=== PATIENT | male | born 1935 | race African-American/Black ===

== ENCOUNTER 2021-12-13 12:46 | Inpatient (IN) | payer MEDICARE ==
[~2021-12-13] VITALS: Ht 177 cm; Wt 70.8 kg
[2021-12-13] VITALS (9 sets, daily range): BP systolic 98–127; BP diastolic 36–75
[2021-12-13] MEDS ORDERED: NS IV 1000 ML 1,000 ML IV STA (13:05)
--- NOTE | 2021-12-13 13:11 | ED General ---
General Chief Complaint: General Problems/Pain Stated Complaint: GEN WEAKNESS Source of Information: Patient, EMS History of Present Illness Date Seen by Provider: December 13, 2021 Time Seen by Provider: 12:46 Initial Comments 86-year-old male presenting with EMS due to complaints of feeling dizzy with standing, generally weak, short of breath. He had an episode of vomiting x1 a few days ago. He denies any diarrhea or constipation but states he has had some dark tarry stools at times. He denies any pain or burning with urination. He used to be a heavy drinker but states he has not drank any alcohol for a few months. He smokes cigarettes. He was told at the beginning of the year that he was anemic and needs to see a specialist in [place]. He has not made that appointment for follow-up. He reports that he has an appointment this afternoon to see Dr. Tovar, but rather than keep his appointment for these chronic conditions he called 911 and had them bring him here to the ED. Timing/Duration: Other (ongoing for months but worse in last 2 weeks) Severity: Moderate Modifying Factors: worse with Movement Associated Systoms: No Chest Pain; Cough; No Diaphoresis, No Fever/Chills, No Headaches; Loss of Appetite, Malaise, Nausea/Vomiting (x 1 few days ago); No Rash, No Seizure; Shortness of Air; No Syncope; Weakness (general) Allergies and Home Medications Allergies Coded Allergies: No Known Drug Allergies (Unverified , 12/13/21) Patient Home Medication List Home Medication List Reviewed: Yes Review of Systems Review of Systems Constitutional: No chills, No diaphoresis; dizziness; No fever; malaise, weakness EENTM: no symptoms reported Respiratory: see HPI Cardiovascular: No chest pain; edema (trace in bilateral LE); No palpitations Gastrointestinal: abdominal pain (RUQ); No constipation, No diarrhea; nausea, vomiting (x1 a few days ago) Genitourinary: no symptoms reported Musculoskeletal: no symptoms reported Skin: No rash Psychiatric/Neurological: See HPI; Denies Headache Hematologic/Lymphatic: Denies Easy Bleeding, Denies Easy Bruising Immunological/Allergic: no symptoms reported Past Akaruhy-Ambzco-Tmdhcu Hx Patient Social History Tobacco Use?: Yes Tobacco type used: Cigarettes Smoking Status: Current Everyday Smoker Use of E-Cig and/or Vaping dev: No Substance use?: No Alcohol Use?: No Pt feels they are or have been: Unable to obtain Past Medical History Surgery/Hospitalization HX: Hypertension, hypercholesterolemia, Hx of alcoholism-quit earlier this year Physical Exam Vital Signs Vital Signs - First Documented 12/13/21 13:03 Temp 36.8 Pulse 102 Resp 18 B/P (MAP) 115/53 (73) Pulse Ox 100 O2 Delivery Room Air Capillary Refill : Height, Weight, BMI Height: '" Weight: lbs. oz. kg; BMI Method: General Appearance: No Apparent Distress, WD/WN HEENT: PERRL/EOMI, Pharynx Normal Neck: Full Range of Motion, Normal Inspection, Non Tender, Supple Respiratory: Chest Non Tender, Lungs Clear, Normal Breath Sounds, No Accessory Muscle Use, No Respiratory Distress Cardiovascular: Normal Peripheral Pulses, Extra Beats, Tachycardia Gastrointestinal: Normal Bowel Sounds, No Pulsatile Mass, Soft; No Distended, No Guarding, No Rebound; Tenderness (RUQ tenderness along liver edge, palpable liver edge) Rectal: Normal Exam, Normal Rectal Tone, Heme Negative Stool Back: No CVA Tenderness, No Vertebral Tenderness Extremity: Normal Capillary Refill, Normal Inspection, No Calf Tenderness, Pedal Edema (trace edema to BLE) Neurologic/Psychiatric: Alert, Oriented x3, No Motor/Sensory Deficits, Normal Mood/Affect, flare stitcher II-XII Norm as Tested Skin: Warm/Dry Progress/Results/Core Measures Suspected Sepsis SIRS Temperature: Pulse: Respiratory Rate: Laboratory Tests 12/13/21 12:57: White Blood Count 3.7L Blood Pressure / Mean: Laboratory Tests 12/13/21 12:57: Creatinine 1.29, INR Comment 1.3, Platelet Count 121L, Total Bilirubin 3.8H Results/Orders Lab Results Laboratory Tests Test 12/13/21 12:57 12/13/21 13:19 12/13/21 14:24 Range/Units White Blood Count 3.7 L 4.3-11.0 10^3/uL Red Blood Count 0.83 L 4.30-5.52 10^6/uL Hemoglobin 2.9 *L 13.3-17.7 g/dL Hematocrit 9 *L 40-54 % Mean Corpuscular Volume 113 H 80-99 fL Mean Corpuscular Hemoglobin 35 H 25-34 pg Mean Corpuscular Hemoglobin Concent 31 L 32-36 g/dL Red Cell Distribution Width 25.3 H 10.0-14.5 % Platelet Count 121 L 130-400 10^3/uL Mean Platelet Volume 12.4 H 9.0-12.2 fL Immature Granulocyte % (Auto) 9 % Neutrophils (%) (Auto) 32 L 42-75 % Lymphocytes (%) (Auto) 36 12-44 % Monocytes (%) (Auto) 22 H 0-12 % Eosinophils (%) (Auto) 0 0-10 % Basophils (%) (Auto) 1 0-10 % Neutrophils # (Auto) 1.2 L 1.8-7.8 10^3/uL Lymphocytes # (Auto) 1.3 1.0-4.0 10^3/uL Monocytes # (Auto) 0.8 0.0-1.0 10^3/uL Eosinophils # (Auto) 0.0 0.0-0.3 10^3/uL Basophils # (Auto) 0.0 0.0-0.1 10^3/uL Immature Granulocyte # (Auto) 0.3 H 0.0-0.1 10^3/uL Prothrombin Time 16.9 H 12.2-14.7 SEC INR Comment 1.3 0.8-1.4 Activated Partial Thromboplast Time 23 L 24-35 SEC Sodium Level 132 L 135-145 MMOL/L Potassium Level 3.0 L 3.6-5.0 MMOL/L Chloride Level 95 L 98-107 MMOL/L Carbon Dioxide Level 16 L 21-32 MMOL/L Anion Gap 21 H 5-14 MMOL/L Blood Urea Nitrogen 32 H 7-18 MG/DL Creatinine 1.29 0.60-1.30 MG/DL Estimat Glomerular Filtration Rate 55 BUN/Creatinine Ratio 25 Glucose Level 146 H 70-105 MG/DL Calcium Level 8.9 8.5-10.1 MG/DL Corrected Calcium 9.2 8.5-10.1 MG/DL Magnesium Level 2.3 1.6-2.4 MG/DL Total Bilirubin 3.8 H 0.1-1.0 MG/DL Aspartate Amino Transf (AST/SGOT) 16 5-34 U/L Alanine Aminotransferase (ALT/SGPT) 13 0-55 U/L Alkaline Phosphatase 68 40-136 U/L Myoglobin 66.0 10.0-92.0 NG/ML Troponin I < 0.30 <0.30 NG/ML Pro-B-Type Natriuretic Peptide 3098.0 H <75.0 PG/ML Total Protein 7.3 6.4-8.2 GM/DL Albumin 3.6 3.2-4.5 GM/DL Lipase 44 8-78 U/L Serum Alcohol < 10 <10 MG/DL Influenza Type A Antigen NEGATIVE NEGATIVE Influenza Type B Antigen NEGATIVE NEGATIVE My Orders Orders - MANUEL ASTORGA MD Cbc With Automated Diff (12/13/21 13:02) Magnesium (12/13/21 13:02) Chest 1 View Ap/Pa Only (12/13/21 13:02) Ekg Tracing (12/13/21 13:02) Comprehensive Metabolic Panel (12/13/21 13:02) Myoglobin Serum (12/13/21 13:02) Protime With Inr (12/13/21 13:02) Partial Thromboplastin Time (12/13/21 13:02) O2 (12/13/21 13:02) Monitor-Rhythm Ecg Trace Only (12/13/21 13:02) Ed Iv/Invasive Line Start (12/13/21 13:02) Lipase (12/13/21 13:02) Troponin I Fs (12/13/21 13:02) Probnp Fs (12/13/21 13:02) Fecal Occult Bedside (12/13/21 13:02) Covid 19 Inhouse Test (12/13/21 13:02) Influenza A & B Antigens (12/13/21 13:02) Ua Culture If Indicated (12/13/21 13:02) Alcohol (12/13/21 13:02) Ns Iv 1000 Ml (Sodium Chloride 0.9%) (12/13/21 13:05) Manual Differential (12/13/21 12:57) Ed Admission (Communication) (12/13/21 14:30) Folic Acid (12/13/21 14:31) Vitamin B 12 (12/13/21 14:31) Pantoprazole Injection (Protonix Injecti (12/13/21 14:31) Vital Signs/I&O 12/13/21 12/13/21 13:03 14:54 Temp 36.8 Pulse 102 89 Resp 18 16 B/P (MAP) 115/53 (73) 135/74 Pulse Ox 100 99 O2 Delivery Room Air Capillary Refill : Progress Note #1: Progress Note Check labs as well as electrocardiogram, chest x-ray, urinalysis. Give normal saline 1 L IV fluid bolus for hydration. Chest x-ray to evaluate for possible pneumonia or heart failure or lung mass. COVID and influenza swabs to evaluate for possible viral infection making him feel more weak. Progress Note #2: Progress Note Electrocardiogram shows sinus rhythm without ST elevation. His chest x-ray showed some increased pulmonary edema for possible congestive heart failure. There is no infiltrate or pleural effusion. Labs came back showing hemoglobin was very low at 2.9. His white blood cell count was 3.7. Platelets were also low at 121. His chemistry panel showed elevated total bilirubin 3.8 with mild decrease in renal function with a GFR of 55. His creatinine is 1.29. Will check with Dr. Whitfield the on-call physician for [facility] about admission since patient's hemoglobin is low enough that he definitely would need transfused to try and help with his blood count and this should help with his overall body function. Progress Note #3: Progress Note [address] Whitfield for [facility] and she accepted the patient for admission. Will place him in a cardiac stepdown unit and she will place queued orders. She did request to consult Dr. Morris with cardiology and Dr. Marte with surgery so that they were aware of the patient. We will also add on B12 and folate levels with the blood work from here in the ED. ECG Initial ECG Impression Date: December 13, 2021 Initial ECG Impression Time: 13:05 Initial ECG Rate: 98 Initial ECG Rhythm: Normal Sinus Initial ECG Comparisson: No Previous ECG Available Comment Normal sinus rhythm with a heart rate 98 bpm. IA interval [address] elevation. QT interval 241 ms with a QTc interval 297 ms. There is no prior tracing available for comparison. Diagnostic Imaging Diagonstic Imaging: Xray Plain Films/CT/US/NM/MRI: chest Comments [facility] [place], [place] NAME: LUKE LOZANO [facility] REC#: [id number] PT STATUS: REG ER : 1935 PHYSICIAN: MANUEL ASTORGA MD ADMIT DATE: 12/13/21/ER FS Draft Date of Exam:12/13/21 CHEST 1 VIEW AP/PA ONLY INDICATION: Dizziness and dyspnea. TECHNIQUE/COMPARISON: A portable AP upright view of the chest was obtained. There is no previous study for comparison. FINDINGS: There is mild cardiomegaly and pulmonary venous congestion. Increased density is seen in the perihilar regions of both lungs without lobar consolidation, pneumothorax, or pleural fluid. IMPRESSION: Findings suggest mild congestive heart failure and central pulmonary edema. Dictated on workstation # [id number] Dict: 12/13/21 1349 Trans: 12/13/21 1352 [id number] Interpreted by: BK PAGE MD Electronically signed by: Reviewed: Reviewed by Me Departure Communication (Admissions) Time/Spoke to Admitting Phy: 14:21 d/w Dr. Whitfield and she accepted pt for admit. Time/Spoke to Consulting Phy: 14:[address] Morris for cardiology to update him about the patient being admitted to [facility] and having a consult regarding echocardiogram and heart failure secondary to his anemia [address] Marte for general surgery to update him about the patient being admitted to [facility] and having a consult for patient's severe anemia. Likely will need endoscopy to further evaluate possible source of bleeding. Impression Primary Impression: Anemia Qualified Codes: D64.9 - Anemia, unspecified Additional Impressions: Generalized weakness Pancytopenia Congestive heart failure of unknown etiology Disposition: 30 STILL A PATIENT Condition: Stable Admissions Decision to Admit Reason: Admit from ER (General) Decision to Admit/Date: December 13, 2021 Time/Decision to Admit Time: 14:21 MANUEL ASTORGA MD December 13, 2021 13:11
[2021-12-13 13:30] LABS: INR 1.3 (0.8-1.4); PROTHROMBIN TIME PATIENT 16.9 SEC (12.2-14.7)
[2021-12-13 13:43] LABS: BASOPHILS % (AUTO) 1 % (0-10); EOSINOPHILS % (AUTO) 0 % (0-10); LYMPHOCYTES # (AUTO) 1.3 10^3/uL (1.0-4.0); LYMPHOCYTES % (AUTO) 36 % (12-44); MEAN CORPUSCULAR HEMOGLOBIN 35 pg (25-34); MEAN CORPUSCULAR HGB CONC 31 g/dL (32-36); MEAN CORPUSCULAR VOLUME 113 fL (80-99); MEAN PLATELET VOLUME 12.4 fL (9.0-12.2); MONOCYTES # (AUTO) 0.8 10^3/uL (0.0-1.0); MONOCYTES % (AUTO) 22 % (0-12); NEUTROPHILS # (AUTO) 1.2 10^3/uL (1.8-7.8); NEUTROPHILS % (AUTO) 32 % (42-75); PLATELET COUNT 121 10^3/uL (130-400); WHITE BLOOD COUNT 3.7 10^3/uL (4.3-11.0)
--- NOTE | 2021-12-13 13:52 | Diagnostic Imaging Report ---
INDICATION: Dizziness and dyspnea. TECHNIQUE/COMPARISON: A portable AP upright view of the chest was obtained. There is no previous study for comparison. FINDINGS: There is mild cardiomegaly and pulmonary venous congestion. Increased density is seen in the perihilar regions of both lungs without lobar consolidation, pneumothorax, or pleural fluid. IMPRESSION: Findings suggest mild congestive heart failure and central pulmonary edema. Dictated by: Dictated on workstation # [id number]
[2021-12-13 13:53] LABS: HEMATOCRIT 9 % (40-54); HEMOGLOBIN 2.9 g/dL (13.3-17.7)
[2021-12-13 13:56] LABS: BILIRUBIN,TOTAL 3.8 MG/DL (0.1-1.0); BUN/CREATININE RATIO 25; CALCIUM 8.9 MG/DL (8.5-10.1); CARBON DIOXIDE 16 MMOL/L (21-32); CHLORIDE 95 MMOL/L (98-107); CREATININE SERUM 1.29 MG/DL (0.60-1.30); GFR ESTIMATED 55; GLUCOSE 146 MG/DL (70-105); MAGNESIUM 2.3 MG/DL (1.6-2.4); SODIUM 132 MMOL/L (135-145)
[2021-12-13 13:57] LABS: ALANINE AMINOTRANSFERASE 13 U/L (0-55); ALBUMIN 3.6 GM/DL (3.2-4.5); ALKALINE PHOSPHATASE 68 U/L (40-136); LIPASE 44 U/L (8-78); TOTAL PROTEIN 7.3 GM/DL (6.4-8.2)
[2021-12-13] MEDS ORDERED: PANTOPRAZOLE 40 MG (PROTONIX) VIAL IV STA (14:31)
[2021-12-13 15:00] LABS: BILIRUBIN,URINE NEGATIVE (NEGATIVE); CLARITY,URINE CLEAR; COLOR,URINE YELLOW; GLUCOSE, URINE (UA) NEGATIVE (NEGATIVE); KETONES,URINE NEGATIVE (NEGATIVE); LEUKOCYTE ESTERASE ,URINE NEGATIVE (NEGATIVE); NITRITE,URINE NEGATIVE (NEGATIVE); PROTEIN,URINE NEGATIVE (NEGATIVE)
[2021-12-13 15:13] LABS: BACTERIA,URINE NEGATIVE /HPF; HYALINE CASTS, URINE 0-2 /LPF; SQUAMOUS EPITHELIAL CELL,UR RARE /HPF; WBC,URINE RARE /HPF
[2021-12-13 15:17] LABS: BAND NEUTROPHILS 2 %; LYMPHOCYTES % (MANUAL) 44 %; METAMYELOCYTES % 1 %; MONOCYTES % (MANUAL) 6 %; MYELOCYTES % 7 %; NEUTROPHILS % (MANUAL) 30 %
[2021-12-13 15:18] LABS: ATYPICAL LYMPHOCYTES 4 %; BLAST CELLS 5 %; NUCLEATED RED BLOOD CELLS 14; PLATELET ESTIMATE DECREASED; RBC MORPH ABNORMAL; REACTIVE LYMPHOCYTES 1 %
[2021-12-13 15:19] LABS: ANISOCYTOSIS MARKED; ELLIPT/OVALOCYTES SLIGHT; POIKILOCYTOSIS MODERATE; POLYCHROMASIA SLIGHT; TEAR DROP CELLS SLIGHT
[2021-12-13] MEDS ORDERED: CYANOCOBALAMIN INJ 1000 MCG/ML IM ONE (16:30)
[2021-12-13] MEDS ORDERED: ANTACID SUSP 30 ML UDC (MYLANTA) PO PRN ×2 (16:30)
[2021-12-13] MEDS ORDERED: diphenhydrAMINE 25 MG TAB (BENADRYL) PO PRN (16:30)
[2021-12-13] MEDS ORDERED: ACETAMINOPHEN 325 MG TABLET PO PRN (16:30)
[2021-12-13] MEDS ORDERED: morphine INJ 4 MG/ML 1 ML (VIAL/SYRINGE) IV PRN (16:30)
[2021-12-13] MEDS ORDERED: SENNA W/DOCUSATE (SENOKOT S) TABLET PO PRN (16:30)
[2021-12-13] MEDS ORDERED: NS IV 500 ML 500 ML IV SCH ×2 (16:30)
[2021-12-13] MEDS ORDERED: ONDANSETRON 4 MG (ZOFRAN) ORAL DISSOLVE TAB PO PRN (16:30)
[2021-12-13] MEDS ORDERED: polyethylene glycoL POWDER 17 GM (MIRALAX) PACK PO PRN (16:30)
[2021-12-13] MEDS ORDERED: MELATONIN 3 MG TABLET PO PRN (16:30)
[2021-12-13] MEDS ORDERED: LORazepam INJ 2 MG/ML (ATIVAN) VIAL IV PRN (16:30)
[2021-12-13] MEDS ORDERED: diphenhydrAMINE 50 MG/ML INJ (BENADRYL) IVP PRN (16:30)
[2021-12-13] MEDS ORDERED: D5 1/2 NS 1000 ML IV SOLUTION 1,000 ML IV PRN (16:30)
[2021-12-13] MEDS ORDERED: ONDANSETRON 4 MG (ZOFRAN) ORAL DISSOLVE TAB SL PRN (16:30)
[2021-12-13] MEDS ORDERED: LORazepam INJ 2 MG/ML (ATIVAN) VIAL IM/IV PRN (16:30)
[2021-12-13] MEDS ORDERED: ONDANSETRON 4 MG/2 ML (SDV) Z0FRAN IV PRN (16:30)
[2021-12-13] MEDS ORDERED: 1/2 NS IV SOLUTION 1,000 ML IV PRN (16:30)
[2021-12-13] MEDS ORDERED: BISACODYL 10 MG SUPP (DULCOLAX) PR PRN (16:30)
[2021-12-13] MEDS ORDERED: RT-ALBUTEROL/IPRATROPIUM 3 ML (DUONEB) VIAL INH PRN (17:00)
[2021-12-13] MEDS: ONDANSETRON 4 MG/2 ML (SDV) Z0FRAN IV PRN (18:04)
--- NOTE | 2021-12-13 20:54 | Consultation - Surgery ---
History of Present Illness History of Present Illness Patient Consulted On(keri/time) 12/13/21 20:49 Time Seen by Provider: 17:02 History of Present Illness Surgery asked to consult regarding profound anemia. HPI per ED: 86-year-old male presenting with EMS due to complaints of feeling dizzy with standing, generally weak, short of breath. He had an episode of vomiting x1 a few days ago. He denies any diarrhea or constipation but states he has had some dark tarry stools at times. He denies any pain or burning with urination. He used to be a heavy drinker but states he has not drank any alcohol for a few months. He smokes cigarettes. He was told at the beginning of the year that he was anemic and needs to see a specialist in [place]. He has not made that appointment for follow-up. He reports that he has an appointment this afternoon to see Dr. Tovar, but rather than keep his appointment for these chronic conditions he called 911 and had them bring him here to the ED. Timing/Duration: Other (ongoing for months but worse in last 2 weeks) Severity: Moderate Modifying Factors: worse with Movement Associated Systoms: No Chest Pain; Cough; No Diaphoresis, No Fever/Chills, No Headaches; Loss of Appetite, Malaise, Nausea/Vomiting (x 1 few days ago); No Rash, No Seizure; Shortness of Air; No Syncope; Weakness (general) When I spoke to pt he stated he had never had an EGD or colonoscopy. He denied abdominal pain and hematochezia. He did report some "darker" stools, but stated they occurred after he took some stool softeners. He states he has felt very weak for past few weaks; "like I had no motivation and couldn't do anything". He denied any hematemesis. Allergies and Home Medications Allergies Coded Allergies: No Known Drug Allergies (Unverified , 12/13/21) Patient Home Medication List Home Medication List Reviewed: Yes Past Kvkfjbx-Nmdqww-Ujzapl Hx Patient Social History Smoking Status: Current Everyday Smoker Alcohol Use?: Yes Have you traveled recently?: No Surgeries History of Surgeries: No Respiratory History of Respiratory Disorde: No Cardiovascular History of Cardiac Disorders: No Neurological History of Neurological Disord: No Genitourinary History of Genitourinary Disor: No Gastrointestinal History of Gastrointestinal Di: No Musculoskeletal History of Musculoskeletal Dis: Yes Musculoskeletal Disorders: Arthritis Endocrine History of Endocrine Disorders: No HEENT History of HEENT Disorders: No Hearing Impairment: Hard of Hearing Psychosocial History of Psychiatric Problem: No Integumentary History of Skin or Integumenta: No Family Medical History Significant Family History: Cancer (pt denied any cancer in his parents), Diabetes (said he had some nieces who had DM) Review of Systems-General Constitutional: dizziness, malaise, weakness EENTM: No blurred vision, No mouth pain, No mouth swelling, No epistaxis Respiratory: No dyspnea on exertion, No hemoptysis; short of breath Cardiovascular: No chest pain, No palpitations Gastrointestinal: No abdominal pain; melena (pt stated dark stools but was heme negative); No nausea, No vomiting Genitourinary: No dysuria, No frequency, No hematuria Musculoskeletal: joint pain, joint swelling, muscle stiffness, muscle cramps Skin: No change in color, No change in hair/nails Psychiatric/Neurological: Denies Anxiety, Denies Depressed, Denies Seizure, Denies Tremors Physical Exam-General Problems Physical Exam Vital Signs Vital Signs - First Documented 12/13/21 12/13/21 13:03 16:47 Temp 36.8 Pulse 102 Resp 18 B/P (MAP) 115/53 (73) Pulse Ox 100 O2 Delivery Room Air FiO2 21 Capillary Refill : General Appearance: no apparent distress, thin Eyes: Bilateral Eye PERRL, Bilateral Eye EOMI HEENT: pharynx normal; No scleral icterus (R), No scleral icterus (L); other (poor dentition) Neck: non-tender, supple Respiratory: chest non-tender, lungs clear, normal breath sounds, no respirat ory distress, no accessory muscle use Cardiovascular: no murmur, tachycardia Gastrointestinal: non tender, soft, no pulsatile mass, hepatomegaly; No spleenomegaly Rectal: No heme positive stool (checked by ER doc) Back: no CVA tenderness, no vertebral tenderness Extremities: non-tender, normal inspection, no calf tenderness, pedal edema (but nothing above ankles) Neurologic/Psychiatric: alert, normal mood/affect, oriented x 3 Skin: normal color, warm/dry Lymphatic: no adenopathy (neck, axilla or groin) Data Review Labs Laboratory Tests 12/13/21 12:57: White Blood Count 3.7L, Red Blood Count 0.83L, Hemoglobin 2.9*L, Hematocrit 9*L, Mean Corpuscular Volume 113H, Mean Corpuscular Hemoglobin 35H, Mean Corpuscular Hemoglobin Concent 31L, Red Cell Distribution Width 25.3H, Platelet Count 121L, Mean Platelet Volume 12.4H, Immature Granulocyte % (Auto) 9, Neutrophils (%) (Auto) 32L, Lymphocytes (%) (Auto) 36, Monocytes (%) (Auto) 22H, Eosinophils (%) (Auto) 0, Basophils (%) (Auto) 1, Neutrophils # (Auto) 1.2L, Lymphocytes # (Auto) 1.3, Monocytes # (Auto) 0.8, Eosinophils # (Auto) 0.0, Basophils # (Auto) 0.0, Immature Granulocyte # (Auto) 0.3H, Neutrophils % (Manual) 30, Lymphocytes % (Manual) 44, Monocytes % (Manual) 6, Metamyelocytes % 1, Myelocytes % 7, Band Neutrophils 2, Nucleated Red Blood Cells 14, Atypical Lymphocytes 4, Reactive Lymphocytes 1, Blast Cells 5, Platelet Estimate DECREASED, Polychromasia SLIGHT, Poikilocytosis MODERATE, Anisocytosis MARKED, Tear Drop Cells SLIGHT, Elliptocytes SLIGHT, Blood Morphology Comment ABNORMAL, Prothrombin Time 16.9H, INR Comment 1.3, Activated Partial Thromboplast Time 23L, Sodium Level 132L, Potassium Level 3.0L, Chloride Level 95L, Carbon Dioxide Level 16L, Anion Gap 21H, Blood Urea Nitrogen 32H, Creatinine 1.29, Estimat Glomerular Filtration Rate 55, BUN/Creatinine Ratio 25, Glucose Level 146H, Calcium Level 8.9, Corrected Calcium 9.2, Magnesium Level 2.3, Total Bilirubin 3.8H, Aspartate Amino Transf (AST/SGOT) 16, Alanine Aminotransferase (ALT/SGPT) 13, Alkaline Phosphatase 68, Myoglobin 66.0, Troponin I < 0.30, Pro-B-Type Natriuretic Peptide 3098.0H, Total Protein 7.3, Albumin 3.6, Lipase 44, Serum Alcohol < 10 12/13/21 13:19: Influenza Type A Antigen NEGATIVE, Influenza Type B Antigen NEGATIVE, SARS-CoV-2 RNA (RT-PCR) Not Detected 12/13/21 14:24: Urine Color YELLOW, Urine Clarity CLEAR, Urine pH 6.0, Urine Specific [place] 1.020, Urine Protein NEGATIVE, Urine Glucose (UA) NEGATIVE, Urine Ketones NEGATIVE, Urine Nitrite NEGATIVE, Urine Bilirubin NEGATIVE, Urine Urobilinogen 1.0, Urine Leukocyte Esterase NEGATIVE, Urine RBC (Auto) NEGATIVE, Urine RBC NONE, Urine WBC RARE, Urine Squamous Epithelial Cells RARE, Urine Crystals NONE, Urine Bacteria NEGATIVE, Urine Casts PRESENT, Urine Hyaline Casts 0-2H, Urine Mucus SMALLH, Urine Culture Indicated NO 12/13/21 17:17: Radiology Signed Date of Exam:12/13/21 CHEST 1 VIEW AP/PA ONLY INDICATION: Dizziness and dyspnea. TECHNIQUE/COMPARISON: A portable AP upright view of the chest was obtained. There is no previous study for comparison. FINDINGS: There is mild cardiomegaly and pulmonary venous congestion. Increased density is seen in the perihilar regions of both lungs without lobar consolidation, pneumothorax, or pleural fluid. IMPRESSION: Findings suggest mild congestive heart failure and central pulmonary edema. Dictated by: Dictated on workstation # [id number] Dict: 12/13/21 1349 Trans: 12/13/21 1701 [id number] Interpreted by: BK PAGE MD Electronically signed by: BK PAGE MD 12/13/21 1701 Assessment/Plan Assessment/Plan Assessment/Plan Profound Anemia Hx of EtOH abuse Pt had a Hemoglobin of 2.9, which is the lowest I have ever seen. He is talking and appears to have no mental defects. He will need to be transfused at least 4-5 units of PRBC's and may need FFP and Platelets. Part of his work-up should be an EGD and Colonoscopy, but timing of these tests is the question. He may not need them while he is in the hospital and in fact he didn't really state whether he would want major surgery if he needed it. I will monitor labs and ask him again whether he would want surgery. Clinical Quality Measures DVT/VTE Risk/Contraindication: Contraindications-Pharm: Other *list below* Other: SILVANO Ovalles DO December 13, 2021 20:54
[2021-12-13] MEDS: MAGNESIUM OXIDE (MAG-OX)400 MG TAB PO SCH (21:22)
[2021-12-13] MEDS: DOCUSATE SODIUM 100 MG (COLACE) CAP PO SCH (21:22)
[2021-12-14] VITALS (11 sets, daily range): BP systolic 103–131; BP diastolic 56–70
--- NOTE | 2021-12-14 06:30 | History & Physical-Hospitalist ---
History of Present Illness HPI/Chief Complaint CC: Anemia HPI: This is an 86 yr old black male of [facility] Dr. Tovar. He presented to the [place] ER with weakness and was found to have a hemoglobin of 2.9 and MCV of 113. He has a history of alcoholism. Supposedly no alcohol use for 3 months. His status post 3 units of blood transfusion his hemoglobin was 6.9. Dr. Morris will be consulted for elevated BNP and CHF. Dr. Marte has been consulted for EGD. Will transfer to 4th floor since he is stable. Source: patient Exam Limitations: no limitations Date Seen 12/14/21 Time Seen by a Provider: 10:00 Attending Physician Santhosh Tovar MD PCP Admitting Physician: Brooke Whitfield DO Attending Physician: Brooke Whitfield DO Referring Physician Date of Admission December 13, 2021 at 15:50 Home Medications & Allergies Home Medications Reviewed patient Home Medication Reconciliation performed by pharmacy medication reconciliations meter technician and/or nursing. Patients Allergies have been reviewed. Allergies Allergies Coded Allergies No Known Drug Allergies (Unverified12/13/21) Past Vlwvuba-Uzlbxd-Wjsctv Hx Patient Social History Marrital Status: single Employed/Student: retired Tobacco Use?: Yes Tobacco type used: Cigarettes Smoking Status: Current Everyday Smoker Use of E-Cig and/or Vaping dev: No Substance use?: No Alcohol Use?: Yes Additional Alcohol Comments: per pt. quit a few months ago Pt feels they are or have been: No Current Status Communicates: Verbally Primary Language: Malaysian Preferred Spoken Language: Malaysian Is interpretation needed?: No Past Medical History Arthritis Hearing Impairment: Hard of Hearing Family Medical History Cancer (pt denied any cancer in his parents), Diabetes (said he had some nieces who had DM) Review of Systems Constitutional: see HPI, dizziness, malaise, weakness EENTM: no symptoms reported Respiratory: dyspnea on exertion Cardiovascular: no symptoms reported Gastrointestinal: no symptoms reported Genitourinary: no symptoms reported Musculoskeletal: no symptoms reported Skin: no symptoms reported Psychiatric/Neurological: No Symptoms Reported All Other Systems Reviewed Negative Unless Noted: Yes Physical Exam Physical Exam Vital Signs Vital Signs - First Documented 12/13/21 12/13/21 13:03 16:47 Temp 36.8 Pulse 102 Resp 18 B/P (MAP) 115/53 (73) Pulse Ox 100 O2 Delivery Room Air FiO2 21 Capillary Refill : Height, Weight, BMI Height: '" Weight: lbs. oz. kg; 23.93 BMI Method: General Appearance: No Apparent Distress, Chronically ill, Thin Eyes: Right Eye Normal Inspection, Right Eye PERRL HEENT: PERRL/EOMI, Normal ENT Inspection, Pharynx Normal, Moist Mucous Membranes Neck: Full Range of Motion, Normal Inspection, Non Tender Respiratory: Chest Non Tender, Lungs Clear, Normal Breath Sounds, No Accessory Muscle Use, No Respiratory Distress Cardiovascular: Regular Rate, Rhythm, No Edema, No Gallop, No JVD, No Murmur, Normal Peripheral Pulses Gastrointestinal: Normal Bowel Sounds, No Organomegaly, No Pulsatile Mass, Non Tender, Soft Back: Normal Inspection, No CVA Tenderness, No Vertebral Tenderness Extremity: Normal Capillary Refill, Normal Inspection, Normal Range of Motion, Non Tender, No Calf Tenderness, No Pedal Edema Neurologic/Psychiatric: Alert, Oriented x3, No Motor/Sensory Deficits, Normal Mood/Affect Skin: Normal Color, Warm/Dry Lymphatic: No Adenopathy Results Results/Procedures Labs Laboratory Tests 12/13/21 12:57 12/14/21 07:47 Patient resulted labs reviewed. Assessment/Plan Admission Diagnosis Assessment: Severe symptomatic anemia hemoglobin 2.9 History of alcoholism Macrocytosis Volume overload Frail status Advanced age Current smoker Plan: Transfuse [address] Marte Consult Dr. Morris Admission Status: Inpatient Order (span 2 midnights) Reason for Inpatient Admission: Severe anemia Diagnosis/Problems Diagnosis/Problems (1) Anemia Status: Acute Qualifiers: Anemia type: unspecified type Qualified Codes: D64.9 - Anemia, unspecified (2) Generalized weakness Status: Acute (3) Congestive heart failure of unknown etiology Status: Acute (4) Mixed hyperlipidemia (5) Cigarette smoker Clinical Quality Measures DVT/VTE Risk/Contraindication: Contraindications-Pharm: Other *list below* Other: BROOKE Albert DO Dec 14, 2021 06:30
[2021-12-14 07:55] LABS: EOSINOPHILS % (AUTO) 0 % (0-10)
[2021-12-14 07:57] LABS: BASOPHILS # (AUTO) 0.1 10^3/uL (0.0-0.1); BASOPHILS % (AUTO) 2 % (0-10); LYMPHOCYTES # (AUTO) 1.4 10^3/uL (1.0-4.0); LYMPHOCYTES % (AUTO) 36 % (12-44); MEAN CORPUSCULAR HEMOGLOBIN 32 pg (25-34); MEAN CORPUSCULAR HGB CONC 34 g/dL (32-36); MEAN CORPUSCULAR VOLUME 94 fL (80-99); MEAN PLATELET VOLUME 10.4 fL (9.0-12.2); MONOCYTES % (AUTO) 25 % (0-12); NEUTROPHILS # (AUTO) 1.1 10^3/uL (1.8-7.8); NEUTROPHILS % (AUTO) 27 % (42-75); PLATELET COUNT 110 10^3/uL (130-400)
[2021-12-14 08:05] LABS: ALBUMIN 3.3 GM/DL (3.2-4.5); POTASSIUM 3.3 MMOL/L (3.6-5.0)
[2021-12-14 08:06] LABS: CALCIUM 8.6 MG/DL (8.5-10.1)
[2021-12-14 08:08] LABS: TOTAL PROTEIN 6.7 GM/DL (6.4-8.2)
[2021-12-14 08:09] LABS: BILIRUBIN,TOTAL 3.5 MG/DL (0.1-1.0)
[2021-12-14 08:11] LABS: CREATININE SERUM 1.06 MG/DL (0.60-1.30)
[2021-12-14 08:28] LABS: HEMATOCRIT 20 % (40-54); HEMOGLOBIN 6.9 g/dL (13.3-17.7)
[2021-12-14] MEDS ORDERED: THIAMINE INJECTION 100 MG, FOLIC ACID INJECTION 1 MG, VITAMIN MULTI INJECTION 10 ML, MA... IV SCH ×5 (09:00)
--- NOTE | 2021-12-14 09:00 | Consultation-Cardiology ---
HPI-Cardiology Cardiology Consultation: Date of Consultation 12/14/21 Date of Admission 12/13/21 Attending Physician Santhosh Tovar MD Admitting Physician Admitting Physician: Brooke Whitfield DO Attending Physician: Brooke Whitfield DO Consulting Physician EL CRUZ JR, MD HPI: Time Seen by a Provider: 08:59 Chief Complaint: REASON FOR CONSULTATION: Heart failure. At the pleasure of seeing Broderick on the cardiac stepdown unit at [facility] in [place], [place] today. He has cardiac risk factors of hypertension, hyperlipidemia and cigarette smoking but no previously known history of cardiac disease. In July he had seen his primary provider and was told that he had anemia. A referral was made to a physician in [place] but the patient never went to his appointment. Around September he started developing dark stool. This has persisted off and on for the past couple of months. He also had some constipation and has been intermittently using stool softeners. However, over the past month or so he has had increasing weakness and fatigue. He has also had dyspnea on exertion. Yesterday he got up in the morning and made a cup of coffee. When he sat down to have his coffee, he could barely move because he felt so weak. He was also lightheaded but denies syncope. He felt short of breath but denies chest discomfort. Because of the profound weakness, he called 911 and was taken to [place] emergency room. During his evaluation, he was found to have profound anemia with a hemoglobin of 2.9 and he was transferred to our hospital for further treatment and evaluation. He has received 3 blood transfusions and is starting to feel better. He denies paroxysmal nocturnal dyspnea, orthopnea, palpitations, or lower extremity edema. He smokes 3-4 cigarettes/day. Certain portions of this document may have been dictated utilizing voice recognition technology. Inherent to this technology, typographical and grammatical errors may exist. As much as I am diligent to identify and correct these mistakes, some errors may remain in the document. Review of Systems-Cardiology Review of Systems Other comments Review of 10 organ systems is as per the history of present illness, otherwise negative. GBS-Oeills-Xycmdz Hx Patient Social History Smoking Status: Current Everyday Smoker Have you traveled recently?: No Alcohol Use?: Yes Pt feels they are or have been: No Tobacco type used: Cigarettes Past Medical History PMH As described under Assessment. Family Medical History Family Medical History: The patient does not know of any family history of premature coronary artery disease in first-degree relatives. Allergies and Home Medications Allergies Coded Allergies: No Known Drug Allergies (Unverified , 12/13/21) Patient Home Medication List Home Medication List Reviewed: Yes Aspirin (Aspirin EC) 81 Mg Tablet.dr, 81 MG PO DAILY, (Reported) Entered as Reported by: ALFA ROGEL on 12/14/21932 Last Action: Held Cetirizine HCl (Cetirizine HCl) 10 Mg Tablet, 10 MG PO DAILY PRN for ALLERGIES, (Reported) Entered as Reported by: ALFA ROGEL on 12/14/21933 Last Action: Continued Famotidine (Famotidine) 20 Mg Tablet, 20 MG PO HS, (Reported) Entered as Reported by: ALFA ROGEL on 12/14/21932 Last Action: Continued Hydrochlorothiazide (Hydrochlorothiazide) 25 Mg Tablet, 25 MG PO HS, (Reported) Entered as Reported by: ALFA ROGEL on 12/14/21932 Last Action: Held Lovastatin (Lovastatin) 40 Mg Tablet, 40 MG PO DAILY, (Reported) Entered as Reported by: ALFA ROGEL on 12/14/21932 Last Action: Converted Tramadol HCl (Tramadol HCl) 50 Mg Tablet, 50 MG PO BID PRN for PAIN-MODERATE (5- 7), (Reported) Entered as Reported by: ALFA ROGEL on 12/14/21932 Last Action: Continued Trazodone HCl (Trazodone HCl) 50 Mg Tablet, 50 MG PO HS, (Reported) Entered as Reported by: ALFA ROGEL on 12/14/21932 Last Action: Continued Exam Vital Signs Vital Signs Date Time Temp Pulse Resp B/P (MAP) Pulse Ox O2 Delivery O2 Flow Rate FiO2 12/14/21 13:00 84 12/14/21 12:00 17 119/56 (77) 95 Room Air 12/14/21 08:00 36.1 12/13/21 16:47 21 Physical Exam General: Alert. No acute distress. Well nourished and appears stated age. Eye: Extraocular movements are intact. Conjunctivae are clear. There are no xanthelasma. HENT: Normocephalic. Atraumatic. Carotid pulsations 2/2 without bruits. Neck: Jugular venous pressure does not appear elevated. No thyromegaly appreciated. Respiratory: Lungs are clear to auscultation. Respirations are non-labored. Breath sounds are equal. Symmetrical chest wall expansion. Cardiovascular: Normal rate. Regular rhythm. 2/6 systolic ejection murmur. No gallop. Point of maximal impulse is not appear displaced. Good pulses equal in all extremities. No edema. Gastrointestinal: Soft. Normal bowel sounds. Skin: Skin turgor is normal. There is no pallor. Musculoskeletal: No kyphosis or scoliosis appreciated. Neurologic: Alert and oriented to person, place, time. Cranial nerves 3-12 appear grossly intact. The patient has good motor tone strength in the upper and lower extremities bilaterally. Psychiatric: Cooperative. Appropriate mood & affect. Labs Laboratory Tests Test 12/13/21 14:24 12/13/21 17:17 12/14/21 05:39 12/14/21 07:47 Range/Units Urine Color YELLOW Urine Clarity CLEAR Urine pH 6.0 5-9 Urine Specific [place] 1.020 1.016-1.022 Urine Protein NEGATIVE NEGATIVE Urine Glucose (UA) NEGATIVE NEGATIVE Urine Ketones NEGATIVE NEGATIVE Urine Nitrite NEGATIVE NEGATIVE Urine Bilirubin NEGATIVE NEGATIVE Urine Urobilinogen 1.0 < = 1.0 MG/DL Urine Leukocyte Esterase NEGATIVE NEGATIVE Urine RBC (Auto) NEGATIVE NEGATIVE Urine RBC NONE /HPF Urine WBC RARE /HPF Urine Squamous Epithelial Cells RARE /HPF Urine Crystals NONE /LPF Urine Bacteria NEGATIVE /HPF Urine Casts PRESENT /LPF Urine Hyaline Casts 0-2 H /LPF Urine Mucus SMALL H /LPF Urine Culture Indicated NO Glucometer 113 H 70-110 MG/DL White Blood Count 4.0 L 4.3-11.0 10^3/uL Red Blood Count 2.17 L 4.30-5.52 10^6/uL Hemoglobin 6.9 #*L 13.3-17.7 g/dL Hematocrit 20 *L 40-54 % Mean Corpuscular Volume 94 80-99 fL Mean Corpuscular Hemoglobin 32 25-34 pg Mean Corpuscular Hemoglobin Concent 34 32-36 g/dL Red Cell Distribution Width 19.0 H 10.0-14.5 % Platelet Count 110 L 130-400 10^3/uL Mean Platelet Volume 10.4 9.0-12.2 fL Immature Granulocyte % (Auto) 10 % Neutrophils (%) (Auto) 27 L 42-75 % Lymphocytes (%) (Auto) 36 12-44 % Monocytes (%) (Auto) 25 H 0-12 % Eosinophils (%) (Auto) 0 0-10 % Basophils (%) (Auto) 2 0-10 % Neutrophils # (Auto) 1.1 L 1.8-7.8 10^3/uL Lymphocytes # (Auto) 1.4 1.0-4.0 10^3/uL Monocytes # (Auto) 1.0 0.0-1.0 10^3/uL Eosinophils # (Auto) 0.0 0.0-0.3 10^3/uL Basophils # (Auto) 0.1 0.0-0.1 10^3/uL Immature Granulocyte # (Auto) 0.4 H 0.0-0.1 10^3/uL Percent Immature Platelet Fraction 6.6 0.0-7.6 % Sodium Level 136 135-145 MMOL/L Potassium Level 3.3 L 3.6-5.0 MMOL/L Chloride Level 102 98-107 MMOL/L Carbon Dioxide Level 19 L 21-32 MMOL/L Anion Gap 15 H 5-14 MMOL/L Blood Urea Nitrogen 31 H 7-18 MG/DL Creatinine 1.06 0.60-1.30 MG/DL Estimat Glomerular Filtration Rate 69 BUN/Creatinine Ratio 29 Glucose Level 117 H 70-105 MG/DL Calcium Level 8.6 8.5-10.1 MG/DL Corrected Calcium 9.2 8.5-10.1 MG/DL Total Bilirubin 3.5 H 0.1-1.0 MG/DL Aspartate Amino Transf (AST/SGOT) 24 5-34 U/L Alanine Aminotransferase (ALT/SGPT) 22 0-55 U/L Alkaline Phosphatase 61 40-136 U/L Total Protein 6.7 6.4-8.2 GM/DL Albumin 3.3 3.2-4.5 GM/DL Test 12/14/21 13:43 Range/Units Lab Scanned Report Transfusion Reaction Form [id number] Radiology ECHOCARDIOGRAM (12/14/2021): 1. Left ventricle: The cavity size is normal. There is mild concentric hypertrophy. Systolic function is normal. The estimated ejection fraction is 55- 60%. There is paradoxical septal motion probably due to an intraventricular conduction delay. Features are consistent with a pseudonormal left ventricular filling pattern, with concomitant abnormal relaxation and increased filling pressure (grade 2 diastolic dysfunction). 2. Left atrium: The left atrium is severely dilated with a volume index ranging from 76-91 mL/m. 3. Mitral valve: There is severe mitral regurgitation. 4. Aortic valve: There is mild aortic valve sclerosis. 5. Tricuspid valve: There is moderate tricuspid regurgitation. 6. Inferior vena cava: The vessel is dilated. The respirophasic diameter changes are blunted (less than 50%). These findings are consistent with markedly elevated right atrial pressure (15 mmHg). 7. Pulmonary arteries: The estimated pulmonary artery systolic pressure is 58 mmHg assuming a right atrial pressure of 15 mmHg. ECG Impression ECG Comment Electrocardiogram from the emergency room on 12/13 shows sinus rhythm with nonspecific ST-T wave changes. Diagnosis/Problems Diagnosis/Problems (1) Acute heart failure with preserved ejection fraction (HFpEF) Assessment & Plan: I suspect the majority of the patient's signs and symptoms are related to his profound anemia. However, his BNP was elevated and he did have some congestion on his chest x-ray. I suspect his symptoms will improve as his hemoglobin gets better with blood transfusions. It is also conceivable that due to the degree of mitral regurgitation noted on his echocardiogram, this could also be causing him to be short of breath. However, given the profound anemia, the mitral regurgitation may have been overestimated for his baseline hemodynamics if he were to have a normal hemoglobin level. (2) Mitral regurgitation Assessment & Plan: He appears to have severe mitral regurgitation. However, I have, he may have some hyperdynamic state at the present time due to the severe anemia. I will consider a follow-up echocardiogram in 1-2 months. (3) Pulmonary hypertension Assessment & Plan: His echocardiogram shows moderate pulmonary hypertension. I suspect this is multifactorial due to his probable chronic obstructive pulmonary disease as well as some degree of chronic heart failure and mitral regurgitation. This will need to be followed longitudinally. (4) Primary hypertension Assessment & Plan: Until his hemoglobin is restored to a more physiologic level, I would suggest holding his antihypertensive medication. (5) Mixed hyperlipidemia Assessment & Plan: I added a lipid panel to previous blood work. He was on lovastatin at home which we do not have on formulary. I have ordered rosuvastatin. (6) Pancytopenia Status: Acute Assessment & Plan: Etiology unclear. He has been receiving packed red blood cells. Some of this may be related to alcohol abuse. The primary hospitalist is managing this condition. (7) Cigarette smoker Assessment & Plan: He needs to quit smoking. He was counseled in this regard. EL CRUZ JR, MD Dec 14, 2021 09:00
[2021-12-14] MEDS: PANTOPRAZOLE 40 MG (PROTONIX) VIAL IV SCH (09:06)
[2021-12-14] MEDS: FOLIC ACID 1 MG TAB PO SCH (09:07)
[2021-12-14] MEDS: MAGNESIUM OXIDE (MAG-OX)400 MG TAB PO SCH ×2 (09:07→20:09)
[2021-12-14] MEDS: DOCUSATE SODIUM 100 MG (COLACE) CAP PO SCH ×2 (09:07→20:09)
[2021-12-14] MEDS ORDERED: TRAM50TA3 PO (09:33)
[2021-12-14] MEDS ORDERED: FAMO20TA5 PO (09:33)
[2021-12-14] MEDS ORDERED: TRZ50T PO (09:33)
[2021-12-14] MEDS ORDERED: ASPI-1238 PO (09:33)
[2021-12-14] MEDS ORDERED: LOVA40TA2 PO (09:33)
[2021-12-14] MEDS ORDERED: HYDR25TA4 PO (09:33)
[2021-12-14] MEDS ORDERED: CETI10TA17 PO (09:34)
[2021-12-14] MEDS: MULTIVIT W/IRON DROPS 50 ML (POLY-VI-SOL W/IRON) PO SCH (09:37)
[2021-12-14] MEDS ORDERED: LORATADINE (CLARITIN) 10 MG TAB PO PRN (12:45)
[2021-12-14 14:41] LABS: TRIGLYCERIDES 60 MG/DL (<150); VLDL CHOLESTEROL 12 MG/DL (5-40)
[2021-12-14 14:46] LABS: CHOLESTEROL 72 MG/DL (< 200); HDL CHOLESTEROL 23 MG/DL (40-60)
[2021-12-14] MEDS: THIAMINE INJECTION 100 MG, FOLIC ACID INJECTION 1 MG, VITAMIN MULTI INJECTION 10 ML, MA... IV SCH ×5 (20:08)
[2021-12-14] MEDS: FAMOTIDINE 20 MG (PEPCID) TABLET PO SCH (20:09)
[2021-12-14] MEDS: ROSUVASTATIN 20 MG (CRESTOR) TABLET PO SCH (20:09)
[2021-12-14] MEDS: traZODone 50 MG (DESYREL) TAB PO SCH (20:09)
--- NOTE | 2021-12-14 20:53 | Progress Note - Surgery ---
Subjective Time Seen by a Provider: 20:43 Subjective/Events-last exam Pt seen and examined, no complaints. States he feels stronger today. He is urinating and passing gas, no BM yet. He is hungry Review of Systems Pulmonary: No Dyspnea, No Cough Cardiovascular: No: Chest Pain, Palpitations Gastrointestinal: No: Nausea, Vomiting, Abdominal Pain Objective Exam Vital Signs Date Time Temp Pulse Resp B/P (MAP) Pulse Ox O2 Delivery O2 Flow Rate FiO2 12/14/21 19:39 36.2 91 20 120/56 (77) 98 Room Air 12/14/21 16:00 36.3 92 28 110/67 (81) 98 12/14/21 15:55 36.0 98 20 131/68 (89) 97 Room Air 12/14/21 13:00 84 12/14/21 12:00 84 17 119/56 (77) 95 Room Air 12/14/21 08:39 Room Air 12/14/21 08:00 36.1 90 20 124/65 (84) 95 Room Air 12/14/21 07:00 87 12/14/21 05:13 36.2 88 32 121/56 97 Room Air 12/14/21 03:45 36.2 85 27 123/69 (87) 96 Room Air 12/14/21 03:45 Room Air 12/14/21 03:01 36.5 84 29 121/62 97 Room Air 12/14/21 02:46 36.3 89 34 122/70 97 Room Air 12/14/21 02:28 36.0 85 20 126/63 97 Room Air 12/14/21 01:00 92 12/14/21 00:11 Room Air 12/13/21 23:47 36.9 96 34 110/66 99 Room Air 12/13/21 23:34 36.9 95 29 127/59 (81) 100 Room Air 12/13/21 23:32 36.9 96 30 127/59 100 Room Air 12/13/21 23:12 36.5 96 34 118/70 99 Room Air I & O 12/14/21 07:00 Intake Total 2080 ml Output Total 300 ml Balance 1780 ml Capillary Refill : General Appearance: No Apparent Distress, Thin HEENT: PERRL/EOMI, Pharynx Normal, Other (poor dentition) Respiratory: Chest Non Tender, Lungs Clear, Normal Breath Sounds, No Accessory Muscle Use, No Respiratory Distress Cardiovascular: Normal Peripheral Pulses, Extra Beats, Tachycardia Gastrointestinal: non tender, soft, no pulsatile mass, hepatomegaly; No spleenomegaly Extremity: No Calf Tenderness Neurologic/Psychiatric: Alert, Oriented x3, Normal Mood/Affect Skin: Warm/Dry Results Lab Laboratory Tests 12/14/21 05:39: Glucometer 113H 12/14/21 07:47: White Blood Count 4.0L, Red Blood Count 2.17L, Hemoglobin 6.9#*L, Hematocrit 20*L, Mean Corpuscular Volume 94, Mean Corpuscular Hemoglobin 32, Mean Corpuscular Hemoglobin Concent 34, Red Cell Distribution Width 19.0H, Platelet Count 110L, Mean Platelet Volume 10.4, Immature Granulocyte % (Auto) 10, Neutrophils (%) (Auto) 27L, Lymphocytes (%) (Auto) 36, Monocytes (%) (Auto) 25H, Eosinophils (%) (Auto) 0, Basophils (%) (Auto) 2, Neutrophils # (Auto) 1.1L, Lymphocytes # (Auto) 1.4, Monocytes # (Auto) 1.0, Eosinophils # (Auto) 0.0, Basophils # (Auto) 0.1, Immature Granulocyte # (Auto) 0.4H, Percent Immature Platelet Fraction 6.6, Sodium Level 136, Potassium Level 3.3L, Chloride Level 102, Carbon Dioxide Level 19L, Anion Gap 15H, Blood Urea Nitrogen 31H, Creatinine 1.06, Estimat Glomerular Filtration Rate 69, BUN/Creatinine Ratio 29, Glucose Level 117H, Calcium Level 8.6, Corrected Calcium 9.2, Total Bilirubin 3.5H, Aspartate Amino Transf (AST/SGOT) 24, Alanine Aminotransferase (ALT/SGPT) 22, Alkaline Phosphatase 61, Total Protein 6.7, Albumin 3.3, Triglycerides Level 60, Cholesterol Level 72, LDL Cholesterol Direct 36, VLDL Cholesterol 12, HDL Cholesterol 23L 12/14/21 13:43: Lab Scanned Report Transfusion Reaction Form Assessment/Plan Assessment/Plan Assessment/Plan Profound Anemia - improved but still low Hypokalemia Hx of EtOH abuse Pt's Hemoglobin is now 6.9, which is improved. He probably still needs to be t ransfused 1 or 2 units of PRBC's. Part of his work-up should be an EGD and Colonoscopy, but I think it may be best to due as an outpt. Would be better if his Hemoglobin is up and electrolytes are more stabilized. Should replace Potassium, etc. Clinical Quality Measures DVT/VTE Risk/Contraindication: Contraindications-Pharm: Other *list below* Other: SILVANO Ovalles DO Dec 14, 2021 20:53
[2021-12-14] MEDS: POTASSIUM CL 10MEQ/50ML IVPB 50 ML IV SCH ×2 (22:01→22:50)
[2021-12-15 04:07] VITALS: BP 100/58
[2021-12-15 07:29] LABS: BASOPHILS # (AUTO) 0.1 10^3/uL (0.0-0.1); BASOPHILS % (AUTO) 2 % (0-10); HEMATOCRIT 21 % (40-54); WHITE BLOOD COUNT 3.2 10^3/uL (4.3-11.0)
[2021-12-15 07:31] LABS: EOSINOPHILS % (AUTO) 0 % (0-10); HEMOGLOBIN 7.1 g/dL (13.3-17.7); LYMPHOCYTES % (AUTO) 31 % (12-44); MEAN CORPUSCULAR HEMOGLOBIN 32 pg (25-34); MEAN CORPUSCULAR HGB CONC 34 g/dL (32-36); MEAN CORPUSCULAR VOLUME 93 fL (80-99); MEAN PLATELET VOLUME 9.2 fL (9.0-12.2); MONOCYTES # (AUTO) 0.8 10^3/uL (0.0-1.0); MONOCYTES % (AUTO) 25 % (0-12); NEUTROPHILS % (AUTO) 33 % (42-75); PLATELET COUNT 95 10^3/uL (130-400)
[2021-12-15 07:46] LABS: POTASSIUM 3.3 MMOL/L (3.6-5.0)
[2021-12-15 07:47] LABS: CALCIUM 8.5 MG/DL (8.5-10.1)
[2021-12-15 07:49] LABS: TOTAL PROTEIN 6.2 GM/DL (6.4-8.2)
[2021-12-15 07:51] LABS: BILIRUBIN,TOTAL 1.8 MG/DL (0.1-1.0)
[2021-12-15 07:52] LABS: CREATININE SERUM 0.83 MG/DL (0.60-1.30)
[2021-12-15 07:54] VITALS: BP 112/50
[2021-12-15] MEDS: MAGNESIUM OXIDE (MAG-OX)400 MG TAB PO SCH ×2 (08:32→20:00)
[2021-12-15] MEDS: AtorvaSTATin TABLET 10 MG TABLET PO SCH (08:32)
[2021-12-15] MEDS: DOCUSATE SODIUM 100 MG (COLACE) CAP PO SCH ×2 (08:32→20:01)
[2021-12-15] MEDS: FOLIC ACID 1 MG TAB PO SCH (08:32)
[2021-12-15] MEDS: PANTOPRAZOLE 40 MG (PROTONIX) VIAL IV SCH (08:32)
[2021-12-15] MEDS: MULTIVIT W/IRON DROPS 50 ML (POLY-VI-SOL W/IRON) PO SCH (08:33)
[2021-12-15] MEDS: ONDANSETRON 4 MG/2 ML (SDV) Z0FRAN IV PRN (09:58)
--- NOTE | 2021-12-15 11:22 | Progress Note - Hospitalist ---
Subjective HPI/CC On Admission Date Seen by Provider: Dec 15, 2021 CC: Anemia HPI: This is an 86 yr old black male of [facility] Dr. Tovar. He presented to the [facility] ER with weakness and was found to have a hemoglobin of 2.9 and MCV of 113. He has a history of alcoholism. Supposedly no alcohol use for 3 months. His status post 3 units of blood transfusion his hemoglobin was 6.9. Dr. Morris will be consulted for elevated BNP and CHF. Dr. Marte has been consulted for EGD. Will transfer to 4th floor since he is stable. Subjective/Events-last exam Pt is doing a little better Had some emesis today Will have a scope as an outpatient Discharge home with his relative that lives in [place] Hemoglobin was 7.1 Review of Systems General: Fatigue, Malaise Objective Exam Vital Signs Vital Signs Date Time Temp Pulse Resp B/P (MAP) Pulse Ox O2 Delivery O2 Flow Rate FiO2 12/16/21 04:00 37.9 88 18 97/52 (67) 98 Room Air 12/15/21 09:48 0.00 12/13/21 16:47 21 Capillary Refill : General Appearance: No Apparent Distress, WD/WN, Chronically ill, Thin Respiratory: Lungs Clear, Normal Breath Sounds Cardiovascular: Regular Rate, Rhythm Neurologic/Psychiatric: Alert, Oriented x3 Results/Procedures Lab Laboratory Tests 12/15/21 07:04 Patient resulted labs reviewed. Assessment/Plan Assessment and Plan Assess & Plan/Chief Complaint Assessment: Severe symptomatic anemia hemoglobin 2.9 History of alcoholism Macrocytosis Volume overload Frail status Advanced age Current smoker Plan: Transfuse [address] Marte Consult Dr. Morris 12/15/2021: Supportive care Monitor hemoglobin PT and OT Diagnosis/Problems Diagnosis/Problems (1) Anemia Status: Acute Qualifiers: Anemia type: unspecified type Qualified Codes: D64.9 - Anemia, unspecified (2) Generalized weakness Status: Acute (3) Congestive heart failure of unknown etiology Status: Acute (4) Mixed hyperlipidemia (5) Cigarette smoker Clinical Quality Measures DVT/VTE Risk/Contraindication: Contraindications-Pharm: Other *list below* Other: ALE Albert DO Dec 15, 2021 11:22
[2021-12-15 11:58] VITALS: BP 102/60
--- NOTE | 2021-12-15 12:04 | Occupational Therapy Eval ---
OT Evaluation-General/PLF Medical Diagnosis Admission Date December 13, 2021 at 15:50 Medical Diagnosis: CHF Onset Date: December 13, 2021 Therapy Diagnosis Therapy Diagnosis: decreased ADL status Precautions Precautions/Isolations: Fall Prevention, Standard Precautions Referral Physician: Roseann Farooq Reason: Evaluation/Treatment Medical History Additional Medical History arthritis, alcohol use Current History ED with weakness, hemoglobin found to be 2.9 requiring multiple blood transfusions. Social History Home: Single Level Current Living Status: Alone Entry Into Home: Stairs With Railing Steps Into Home: 2 ADL-Prior Level of Function SCALE: Activities may be completed with or without assistive devices. 9-Okehqtyhbd-mliebyk completes the activity by him/herself with no assistance from a helper. 5-Set-up or Clean-up Assistance-helper sets up or cleans up; patient completes activity. [place] assists only prior to or following the activity. 4-Supervision or Touching Assistance-helper provides verbal cues and/or touching/steadying and/or contact guard assistance as patient completes activity. Assistance may be provided throughout the activity or intermittently. 3-Partial/Moderate Assistance-helper does LESS THAN HALF the effort. [place] lif ts, holds or supports trunk or limbs, but provides less than half the effort. 2-Substantial/Maximal Assistance-helper does MORE THAN HALF the effort. [place] lifts or holds trunk or limbs and provides more than half the effort. 9-Gyxpynoji-yemsed does ALL the effort. Patient does none of the effort to complete the activity. Or, the assistance of 2 or more helpers is required for the patient to complete the activity. If activity was not attempted, code reason: 7-Patient Refused. 9-Not Applicable-not attempted and the patient did not perform the activity before the current illness, exacerbation or injury. 10-Not Attempted due to Environmental Limitations-(lack of equipment, weather restraints, etc.). 88-Not Attempted due to Medical Conditions or Safety Concerns. ADL PLOF Comments Pt reports IND with ADLs and functional mobility, no AD. Self Care: Independent Functional Cognition: Independent OT Current Status Subjective Pt in bed, agreeable to OT evaluation. States he doesn't feel like his normal self. Current Upper Extremity ROM WFL Upper Extremity Strength grossly 3+/5 ADL-Treatment Eating (QC): 6 (Pt reports IND with meals.) Lower Body Dressing (QC): 3 (Per clinical judgment, pt able to thread BLEs and pant hike, min A for balance.) On/Off Footwear (QC): 4 (SBA donning/doffing gripper socks.) Toileting Hygiene (QC): 3 (Min A for balanace in standing per clinical judgment.) Other Treatments Pt in bed, transferred supine to sit EOB, SBA, then completed footwear. Pt performed functional mobility in hallways, no AD, min A for balance. Pt returned to his room, transferred EOB then supine, SBA sit to supine. Post tx, pt in bed, call light in reach and all needs met, bed alarm activated. Education OT Patient Education: Correct positioning, Energy conservation, Modified ADL techniques, Progress toward Goal/Update tx plan, Purpose of tx/functional activities, Rehab process Teaching Recipient: Patient Teaching Methods: Discussion Response to Teaching: Verbalize Understanding OT Long-Term Goals Long-Term Goals Time Frame: Dec 23, 2021 Eating (QC): 6 Oral Hygiene (QC): 6 Toileting Hygiene (QC): 6 Shower/Bathe Self (QC): 6 Upper Body Dressing (QC): 6 Lower Body Dressing (QC): 6 On/Off Footwear (QC): 6 Additional Goals: 1-Demonstrate ADL Tasks, 2-Verbalize Understanding, 3- ImproveStrength/Parris 1=Demonstrate adherence to instructed precautions during ADL tasks. 2=Patient will verbalize/demonstrate understanding of assistive devices/modific ations for ADL. 3=Patient will improve strength/tolerance for activity to enable patient to perform ADL's. OT Education/Plan Problem List/Assessment Assessment: Decreased Activ Tolerance, Decreased UE Strength, Impaired Funct Balance, Impaired I ADL's Discharge Recommendations Plan/Recommendations: Continue POC Treatment Plan/Plan of Care Patient would benefit from OT for education, treatment and training to promote independence in ADL's, mobility, safety and/or upper extremity function for ADL's. Plan of Care: ADL Retraining, Functional Mobility, UE Funct Exercise/Act Treatment Duration: Dec 23, 2021 Frequency: 3 times per week (3-5 times per week) Estimated Hrs Per Day: .25 hour per day Agreement: Yes Rehab Potential: Fair Time/GCodes Start Time: 11:42 Stop Time: 11:55 Total Time Billed (hr/min): 13 Billed Treatment Time 1, LESVIA JOSHI OT Dec 15, 2021 12:04
--- NOTE | 2021-12-15 12:36 | Cardiology Progress Note ---
Progress Note-Cardiology Events since last exam Date Seen by Provider: Dec 15, 2021 Time Seen by Provider: 12:36 Events since last exam I am following him due to heart failure and aortic stenosis. He is feeling s tronger and his breathing is improved. He has now received a total of 3 blood transfusion. He denies chest discomfort, palpitations, syncope, or ankle edema. Certain portions of this document may have been dictated utilizing voice recognition technology. Inherent to this technology, typographical and grammatical errors may exist. As much as I am diligent to identify and correct these mistakes, some errors may remain in the document. Vitals Last set of Vitals Signs Vital Signs 12/13/21 12/15/21 12/15/21 16:47 09:48 16:26 Temp 36.0 Pulse 99 Resp 18 B/P (MAP) 106/65 (79) Pulse Ox 99 O2 Delivery Room Air O2 Flow Rate 0.00 FiO2 21 Labs Labs Laboratory Tests 12/15/21 07:04 Exam Vital Signs Vital Signs Date Time Temp Pulse Resp B/P (MAP) Pulse Ox O2 Delivery O2 Flow Rate FiO2 12/15/21 16:26 36.0 99 18 106/65 (79) 99 Room Air 12/15/21 09:48 0.00 12/13/21 16:47 21 Physical Exam General: Alert. No acute distress. Eye: No xanthelasma. HENT: Normocephalic. Neck: Jugular venous pressure does not appear elevated. Respiratory: Lungs are clear to auscultation. Respirations are non-labored. B reath sounds are equal. Symmetrical chest wall expansion. Cardiovascular: Normal rate. Regular rhythm. 3/6 systolic ejection murmur. No gallop. No edema. Gastrointestinal: Soft. Normal bowel sounds. Skin: Warm. Dry. Neurologic: Alert and oriented to person, place, time. Cranial nerves 3-11 grossly intact. Psychiatric: Cooperative. Appropriate mood & affect. Labs Laboratory Tests Test 12/15/21 07:04 Range/Units White Blood Count 3.2 L 4.3-11.0 10^3/uL Red Blood Count 2.25 L 4.30-5.52 10^6/uL Hemoglobin 7.1 L 13.3-17.7 g/dL Hematocrit 21 L 40-54 % Mean Corpuscular Volume 93 80-99 fL Mean Corpuscular Hemoglobin 32 25-34 pg Mean Corpuscular Hemoglobin Concent 34 32-36 g/dL Red Cell Distribution Width 20.1 H 10.0-14.5 % Platelet Count 95 L 130-400 10^3/uL Mean Platelet Volume 9.2 9.0-12.2 fL Immature Granulocyte % (Auto) 10 % Neutrophils (%) (Auto) 33 L 42-75 % Lymphocytes (%) (Auto) 31 12-44 % Monocytes (%) (Auto) 25 H 0-12 % Eosinophils (%) (Auto) 0 0-10 % Basophils (%) (Auto) 2 0-10 % Neutrophils # (Auto) 1.0 L 1.8-7.8 10^3/uL Lymphocytes # (Auto) 1.0 1.0-4.0 10^3/uL Monocytes # (Auto) 0.8 0.0-1.0 10^3/uL Eosinophils # (Auto) 0.0 0.0-0.3 10^3/uL Basophils # (Auto) 0.1 0.0-0.1 10^3/uL Immature Granulocyte # (Auto) 0.3 H 0.0-0.1 10^3/uL Percent Immature Platelet Fraction 6.0 0.0-7.6 % Sodium Level 135 135-145 MMOL/L Potassium Level 3.3 L 3.6-5.0 MMOL/L Chloride Level 104 98-107 MMOL/L Carbon Dioxide Level 19 L 21-32 MMOL/L Anion Gap 12 5-14 MMOL/L Blood Urea Nitrogen 23 H 7-18 MG/DL Creatinine 0.83 0.60-1.30 MG/DL Estimat Glomerular Filtration Rate 86 BUN/Creatinine Ratio 28 Glucose Level 102 70-105 MG/DL Calcium Level 8.5 8.5-10.1 MG/DL Corrected Calcium 9.3 8.5-10.1 MG/DL Total Bilirubin 1.8 H 0.1-1.0 MG/DL Aspartate Amino Transf (AST/SGOT) 19 5-34 U/L Alanine Aminotransferase (ALT/SGPT) 19 0-55 U/L Alkaline Phosphatase 57 40-136 U/L Total Protein 6.2 L 6.4-8.2 GM/DL Albumin 3.0 L 3.2-4.5 GM/DL Diagnosis/Problems Diagnosis/Problems (1) Acute heart failure with preserved ejection fraction (HFpEF) Assessment & Plan: I suspect the majority of the patient's signs and symptoms are related to his profound anemia. However, his BNP was elevated and he did have some congestion on his chest x-ray. I suspect his symptoms will improve as his hemoglobin gets better with blood transfusions. It is also conceivable that due to the degree of mitral regurgitation noted on his echocardiogram, this could also be causing him to be short of breath. However, given the profound anemia, the mitral regurgitation may have been overestimated for his baseline hemodynamics if he were to have a normal hemoglobin level. (2) Mitral regurgitation Assessment & Plan: He appears to have severe mitral regurgitation. However, as above, he may have some hyperdynamic state at the present time due to the severe anemia. I will consider a follow-up echocardiogram in 1-2 months. (3) Pulmonary hypertension Assessment & Plan: His echocardiogram shows moderate pulmonary hypertension. I suspect this is multifactorial due to his probable chronic obstructive pulmonary disease as well as some degree of chronic heart failure and mitral regurgitation. This will need to be followed longitudinally. (4) Primary hypertension Assessment & Plan: He remains normotensive on no antihypertensive medication. We will continue to monitor his blood pressure. (5) Mixed hyperlipidemia Assessment & Plan: He was on lovastatin at home which we do not have on formulary. I have ordered rosuvastatin. (6) Pancytopenia Status: Acute Assessment & Plan: Etiology unclear. He has been receiving packed red blood cells. Some of this may be related to alcohol abuse. The primary hospitalist is managing this condition. Since he may need some additional cardiac testing in the future, I have ordered a hematology consultation to help further evaluate the pancytopenia. This information will be necessary in the event we need him to undergo any invasive cardiac procedures in regards to the mitral regurgitation. (7) Cigarette smoker Assessment & Plan: He needs to quit smoking. He was counseled in this regard. EL CRUZ JR, MD Dec 15, 2021 12:36
--- NOTE | 2021-12-15 12:52 | Physical Therapy Evaluation ---
PT Evaluation-General Medical Diagnosis Admission Date December 13, 2021 at 15:50 Medical Diagnosis: CHF Onset Date: December 13, 2021 Therapy Diagnosis Therapy Diagnosis: impaired mobility, balance, coordination, strength Precautions Precautions/Isolations: Fall Prevention, Standard Precautions Referral Physician: Brooke Whitfield DO Reason for Referral: Evaluation/Treatment Medical History Pertinent Medical History: Alcoholism, Arthritis, Smoking Reviewed History: Yes Social History Home: Single Level Current Living Status: Alone Entry Into Home: Stairs With Railing PT Steps Into Home: 2 Prior Prior Level of Function SCALE: Activities may be completed with or without assistive devices. 1-Oeofeqdqzv-kbgjgsv completes the activity by him/herself with no assistance from a helper. 5-Set-up or Clean-up Assistance-helper sets up or cleans up; patient completes activity. [place] assists only prior to or following the activity. 4-Supervision or Touching Assistance-helper provides verbal cues and/or touching/steadying and/or contact guard assistance as patient completes activity. Assistance may be provided throughout the activity or intermittently. 3-Partial/Moderate Assistance-helper does LESS THAN HALF the effort. [place] lifts, holds or supports trunk or limbs, but provides less than half the effort. 2-Substantial/Maximal Assistance-helper does MORE THAN HALF the effort. [place] lifts or holds trunk or limbs and provides more than half the effort. 0-Eadnfbhuc-yshakj does ALL the effort. Patient does none of the effort to complete the activity. Or, the assistance of 2 or more helpers is required for the patient to complete the activity. If activity was not attempted, code reason: 7-Patient Refused. 9-Not Applicable-not attempted and the patient did not perform the activity before the current illness, exacerbation or injury. 10-Not Attempted due to Environmental Limitations-(lack of equipment, weather restraints, etc.). 88-Not Attempted due to Medical Conditions or Safety Concerns. Bed Mobility: 6 Transfers (B,C,W/C): 6 Gait: 6 Stairs: 6 Indoor Mobility (Ambulation): Independent Stairs: Independent PT Evaluation-Current Subjective Patient in bed pre tx, agrees to PT, has no complaints of pain. Pt/Family Goals "to go home" Objective Patient Orientation: Person, Place, Situation ROM/Strength ROM Lower Extremities WNL Strength Lower Extremities LLE (hip flexion 3/5, knee flexion 3+/5, knee extension 3+/5, dorsiflexion 5/5), RLE (hip flexion 3/5, knee flexion 3+/5, knee extension 4/5, dorsiflexion 5/5) Sensory Hearing: Functional Sensation Right Lower Extremit: Intact Sensation Left Lower Extremity: Intact Transfers Roll Left to Right (QC): 6 Sit to Lying (QC): 6 Lying to Sitting/Side of Bed(Q: 6 Sit to Stand (QC): 4 Chair/Hzn-qy-Qzmlu Xfer(QC): 3 Gait Does the Patient Walk?: Yes Mode of Locomotion: Walk Anticipated Mode of Locomotion: Walk Walk 10 feet (QC): 3 Walk 50 ft with 2 Turns(QC): 3 Walk 150 ft (QC): 3 Distance: 150' Gait Assistive Device: None Balance Sitting Static: Normal Sitting Dynamic: Normal Standing Static: Poor Standing Dynamic: Poor Assessment/Needs Patient in bed post tx with nurse call, phone, tray, all needs met, bed alarm on. Patent has impaired mobility, strength, endurance, balance. Patient demonstrates ambulation with ataxia and uncoordinated steps, needs min assist to maintain balance, needs to use a rolling walker for ambulation. Rehab Potential: Fair PT Neurology Director Goals Neurology Director Goals PT Neurology Director Goals Time Frame: Dec 22, 2021 Roll Left & Right (QC): 6 Sit to Lying (QC): 6 Lying-Sitting on Side/Bed(QC): 6 Sit to Stand (QC): 4 (SBA) Chair/Tao-vz-Ynipu Xfer(QC): 4 (SBA) Walk 10 feet (QC): 4 (SBA) Walk 50ft with 2 Turns (QC): 4 (SBA) Walk 150 ft (QC): 4 (SBA) PT Plan Problem List Problem List: Activity Tolerance, Functional Strength, Safety, Balance, Gait, Transfer, ROM Treatment/Plan Treatment Plan: Continue Plan of Care Treatment Plan: Education, Functional Activity Parris, Functional Strength, Gait, Safety, Therapeutic Exercise, Transfers Treatment Duration: Dec 22, 2021 Frequency: 6 times per week Estimated Hrs Per Day: .25 hour per day Patient and/or Family Agrees t: Yes Safety Risks/Education Patient Education: Gait Training, Transfer Techniques, Correct Positioning, Safety Issues Teaching Recipient: Patient Teaching Methods: Demonstration, Discussion Response to Teaching: Reinforcement Needed Discharge Recommendations Plan Patient will perform bed mobility and transfer training, balance and endurance training, functional strengthening, stair training, gait training, and education, to improve functional mobility and independence at home. Therapy Discharge Recommendati: Scheduled Assistance, Home & Family, Post Acute PT Time/GCodes Time In: 1140 Time Out: 1152 Total Billed Treatment Time: 12 Total Billed Treatment 1 visit SASHA LANGSTON PT Dec 15, 2021 12:52
--- NOTE | 2021-12-15 15:02 | Diagnostic Imaging Report ---
INDICATION: Dyspnea PA and lateral views of the chest are obtained with comparison made to study of 12/13/2021. Mild cardiomegaly persists. There is mild pulmonary venous congestion which may be slightly improved when compared to previous study. There is now asymmetric prominence of the right hilum. This may in part be projectional although this could be related to focal edema or central vascularity. There is now small amount right pleural fluid which was not seen on the previous exam. IMPRESSION: Mild adverse change with increasing density in right hilum and developing right pleural fluid since 12/13/2021. Clinical correlation and short-term radiographic follow-up would be of use. Dictated by: Dictated on workstation # [id number]
[2021-12-15 16:26] VITALS: BP 106/65
[2021-12-15] MEDS: THIAMINE INJECTION 100 MG, FOLIC ACID INJECTION 1 MG, VITAMIN MULTI INJECTION 10 ML, MA... IV SCH ×5 (17:37)
--- NOTE | 2021-12-15 17:49 | Progress Note - Surgery ---
Subjective Time Seen by a Provider: 12:16 Subjective/Events-last exam Pt seen and examined, states he is doing well. Had a BM and is not seeing any blood. He is tolerating diet. Still weak, but better than before. Review of Systems General: Fatigue Pulmonary: No Dyspnea, No Cough Cardiovascular: No: Chest Pain, Palpitations Gastrointestinal: No: Abdominal Pain Objective Exam Vital Signs Date Time Temp Pulse Resp B/P (MAP) Pulse Ox O2 Delivery O2 Flow Rate FiO2 12/15/21 16:26 36.0 99 18 106/65 (79) 99 Room Air 12/15/21 11:58 36.5 97 18 102/60 (74) 99 Room Air 12/15/21 09:48 97 Room Air 0.00 12/15/21 08:07 Room Air 12/15/21 07:54 36.7 105 18 112/50 (70) 97 Room Air 12/15/21 04:07 36.2 91 18 100/58 (72) 97 Room Air 12/14/21 23:43 36.6 82 18 103/57 (72) 96 Room Air 12/14/21 21:00 Room Air 12/14/21 19:39 36.2 91 20 120/56 (77) 98 Room Air I & O 12/15/21 07:00 Intake Total 1300 ml Balance 1300 ml Capillary Refill : General Appearance: No Apparent Distress, Chronically ill, Thin HEENT: PERRL/EOMI (arcus senilis), Moist Mucous Membranes, Other (poor dentiti on) Respiratory: Chest Non Tender, Lungs Clear, Normal Breath Sounds, No Accessory Muscle Use, No Respiratory Distress Cardiovascular: Regular Rate, Rhythm, No Murmur Gastrointestinal: non tender, soft, no pulsatile mass, hepatomegaly; No spleenomegaly Extremity: No Calf Tenderness, No Pedal Edema Neurologic/Psychiatric: Alert, Oriented x3 Results Lab Laboratory Tests 12/15/21 07:04: White Blood Count 3.2L, Red Blood Count 2.25L, Hemoglobin 7.1L, Hematocrit 21L, Mean Corpuscular Volume 93, Mean Corpuscular Hemoglobin 32, Mean Corpuscular Hemoglobin Concent 34, Red Cell Distribution Width 20.1H, Platelet Count 95L, Mean Platelet Volume 9.2, Immature Granulocyte % (Auto) 10, Neutrophils (%) (Auto) 33L, Lymphocytes (%) (Auto) 31, Monocytes (%) (Auto) 25H, Eosinophils (%) (Auto) 0, Basophils (%) (Auto) 2, Neutrophils # (Auto) 1.0L, Lymphocytes # (Auto) 1.0, Monocytes # (Auto) 0.8, Eosinophils # (Auto) 0.0, Basophils # (Auto) 0.1, Immature Granulocyte # (Auto) 0.3H, Percent Immature Platelet Fraction 6.0, Sodium Level 135, Potassium Level 3.3L, Chloride Level 104, Carbon Dioxide Level 19L, Anion Gap 12, Blood Urea Nitrogen 23H, Creatinine 0.83, Estimat Glomerular Filtration Rate 86, BUN/Creatinine Ratio 28, Glucose Level 102, Calcium Level 8.5, Corrected Calcium 9.3, Total Bilirubin 1.8H, Aspartate Amino Transf (AST/SGOT) 19, Alanine Aminotransferase (ALT/SGPT) 19, Alkaline Phosphatase 57, Total Protein 6.2L, Albumin 3.0L Assessment/Plan Assessment/Plan Assessment/Plan Profound Anemia - improved but still low Hypokalemia Hx of EtOH abuse Pt's Hemoglobin is now 7.1, which is within the range of lab difference (he did not get transfused anymore. Can probably wait to transfuse more PRBC's. Part of his work-up should be an EGD and Colonoscopy, but I think it may be best to due as an outpt. Would be better if his Hemoglobin is up and electrolytes are more stabilized. Should continue to replace Potassium, it did not change from yesterday. Clinical Quality Measures DVT/VTE Risk/Contraindication: Contraindications-Pharm: Other *list below* Other: SILVANO Ovalles DO Dec 15, 2021 17:48
[2021-12-15 20:00] VITALS: BP 110/54
[2021-12-15] MEDS: traZODone 50 MG (DESYREL) TAB PO SCH (20:00)
[2021-12-15] MEDS: ROSUVASTATIN 20 MG (CRESTOR) TABLET PO SCH (20:01)
[2021-12-15] MEDS: FAMOTIDINE 20 MG (PEPCID) TABLET PO SCH (20:01)
[2021-12-15] MEDS ORDERED: IBUPROFEN TABLET 200 MG TAB PO PRN (23:45)
[2021-12-15 23:49] VITALS: BP 102/56
[2021-12-16] VITALS (11 sets, daily range): BP systolic 91–134; BP diastolic 52–69
[2021-12-16 06:01] LABS: MEAN CORPUSCULAR VOLUME 94 fL (80-99)
[2021-12-16 06:03] LABS: BASOPHILS # (AUTO) 0.1 10^3/uL (0.0-0.1); BASOPHILS % (AUTO) 2 % (0-10); EOSINOPHILS % (AUTO) 0 % (0-10); LYMPHOCYTES # (AUTO) 1.2 10^3/uL (1.0-4.0); LYMPHOCYTES % (AUTO) 42 % (12-44); MEAN CORPUSCULAR HEMOGLOBIN 32 pg (25-34); MEAN CORPUSCULAR HGB CONC 34 g/dL (32-36); MEAN PLATELET VOLUME 11.3 fL (9.0-12.2); MONOCYTES # (AUTO) 0.7 10^3/uL (0.0-1.0); MONOCYTES % (AUTO) 23 % (0-12); NEUTROPHILS # (AUTO) 0.8 10^3/uL (1.8-7.8); NEUTROPHILS % (AUTO) 26 % (42-75); PLATELET COUNT 67 10^3/uL (130-400)
--- NOTE | 2021-12-16 06:13 | Progress Note - Hospitalist ---
Subjective HPI/CC On Admission Date Seen by Provider: Dec 16, 2021 Time Seen by Provider: 11:00 CC: Anemia HPI: This is an 86 yr old black male of [facility] Dr. Tovar. He presented to the [facility] ER with weakness and was found to have a hemoglobin of 2.9 and MCV of 113. He has a history of alcoholism. Supposedly no alcohol use for 3 months. His status post 3 units of blood transfusion his hemoglobin was 6.9. Dr. oMrris will be consulted for elevated BNP and CHF. Dr. Marte has been consulted for EGD. Will transfer to 4th floor since he is stable. Subjective/Events-last exam Pt had an isolated fever last night Hemoglobin was 6.1 requiring one unit of blood PT and OT were ordered Updated brother at the bedside Scopes will be needed next week Review of Systems General: Fatigue, Malaise Objective Exam Vital Signs Vital Signs Date Time Temp Pulse Resp B/P (MAP) Pulse Ox O2 Delivery O2 Flow Rate FiO2 12/16/21 16:11 36.4 105 24 131/56 (81) 99 Room Air 12/16/21 08:19 0.00 12/13/21 16:47 21 Capillary Refill : General Appearance: No Apparent Distress, WD/WN, Chronically ill Respiratory: Lungs Clear, Normal Breath Sounds Cardiovascular: Regular Rate, Rhythm Neurologic/Psychiatric: Alert, Oriented x3 Results/Procedures Lab Laboratory Tests 12/16/21 05:20 Patient resulted labs reviewed. Assessment/Plan Assessment and Plan Assess & Plan/Chief Complaint Assessment: Severe symptomatic anemia hemoglobin 2.9 History of alcoholism Macrocytosis Volume overload Frail status Advanced age Current smoker Plan: Transfuse [address] Marte Consult Dr. Morris 12/15/2021: Supportive care Monitor hemoglobin PT and OT 12/16/21: Transfuse another 1 unit PT OT DC soon Scopes as outpatient Diagnosis/Problems Diagnosis/Problems (1) Anemia Status: Acute Qualifiers: Anemia type: unspecified type Qualified Codes: D64.9 - Anemia, unspecified (2) Generalized weakness Status: Acute (3) Congestive heart failure of unknown etiology Status: Acute (4) Mixed hyperlipidemia (5) Cigarette smoker Clinical Quality Measures DVT/VTE Risk/Contraindication: Contraindications-Pharm: Other *list below* Other: ALE Albert DO Dec 16, 2021 06:13
[2021-12-16 06:18] LABS: HEMATOCRIT 18 % (40-54); HEMOGLOBIN 6.2 g/dL (13.3-17.7)
[2021-12-16 06:21] LABS: ALBUMIN 2.7 GM/DL (3.2-4.5); POTASSIUM 3.1 MMOL/L (3.6-5.0)
[2021-12-16 06:23] LABS: CALCIUM 8.1 MG/DL (8.5-10.1)
[2021-12-16 06:24] LABS: TOTAL PROTEIN 5.4 GM/DL (6.4-8.2)
[2021-12-16 06:26] LABS: BILIRUBIN,TOTAL 1.6 MG/DL (0.1-1.0)
[2021-12-16 06:27] LABS: CREATININE SERUM 0.9 MG/DL (0.60-1.30)
[2021-12-16] MEDS ORDERED: NS IV 500 ML 500 ML IV SCH ×2 (07:00)
[2021-12-16] MEDS: DOCUSATE SODIUM 100 MG (COLACE) CAP PO SCH ×2 (07:46→20:26)
[2021-12-16] MEDS: MAGNESIUM OXIDE (MAG-OX)400 MG TAB PO SCH (07:46)
[2021-12-16] MEDS: AtorvaSTATin TABLET 10 MG TABLET PO SCH (07:46)
[2021-12-16] MEDS: PANTOPRAZOLE 40 MG (PROTONIX) VIAL IV SCH (07:46)
[2021-12-16] MEDS: FOLIC ACID 1 MG TAB PO SCH (07:46)
[2021-12-16] MEDS: POTASSIUM CL 10MEQ/50ML IVPB 50 ML IV SCH ×4 (07:51→11:59)
[2021-12-16] MEDS: MULTIVIT W/IRON DROPS 50 ML (POLY-VI-SOL W/IRON) PO SCH (07:55)
--- NOTE | 2021-12-16 08:09 | Diagnostic Imaging Report ---
INDICATION: Fever. Portable AP view of chest is obtained with comparison made study of 12/13/2021 FINDINGS: There is cardiomegaly. Pulmonary venous congestion persists. There is mild increased density in the central aspect of the lungs which may be due to edema. There is no evidence of pneumothorax. Small amount of right pleural fluid is present. IMPRESSION: Pulmonary venous congestion and edema likely related to congestive heart failure. Superimposed pneumonitis is not excluded. Small amount of right pleural fluid is also present. Dictated by: Dictated on workstation # [id number]
--- NOTE | 2021-12-16 09:00 | Cardiology Progress Note ---
Progress Note-Cardiology Events since last exam Date Seen by Provider: Dec 16, 2021 Time Seen by Provider: 08:59 Events since last exam I am following him due to heart failure and mitral regurgitation. I had inad vertently written aortic stenosis in my note from 12/15. In actuality, he has severe mitral regurgitation noted on echocardiogram from this admission. Overall, he feels as though he is improving. When I saw him, he had just gotten back into bed after walking with physical therapy. He denies chest discomfort. He still does have some weakness and dyspnea on exertion. He denies palpitations, syncope, or ankle edema. Certain portions of this document may have been dictated utilizing voice recog nition technology. Inherent to this technology, typographical and grammatical errors may exist. As much as I am diligent to identify and correct these mistakes, some errors may remain in the document. Vitals Last set of Vitals Signs Vital Signs 12/13/21 12/16/21 12/16/21 16:47 08:19 11:27 Temp 36.5 Pulse 101 Resp 18 B/P (MAP) 128/58 (81) Pulse Ox 95 O2 Delivery Room Air O2 Flow Rate 0.00 FiO2 21 Labs Labs Laboratory Tests 12/16/21 05:20 Exam Vital Signs Vital Signs Date Time Temp Pulse Resp B/P (MAP) Pulse Ox O2 Delivery O2 Flow Rate FiO2 12/16/21 11:27 36.5 101 18 128/58 (81) 95 Room Air 12/16/21 08:19 0.00 12/13/21 16:47 21 Physical Exam General: Alert. No acute distress. Eye: No xanthelasma. HENT: Normocephalic. Neck: Jugular venous pressure does not appear elevated. Respiratory: Lungs are clear to auscultation. Respirations are non-labored. Breath sounds are equal. Symmetrical chest wall expansion. Cardiovascular: Normal rate. Regular rhythm. 3/6 systolic ejection murmur. No gallop. No edema. Gastrointestinal: Soft. Normal bowel sounds. Skin: Warm. Dry. Neurologic: Alert and oriented to person, place, time. Cranial nerves 3-11 grossly intact. Psychiatric: Cooperative. Appropriate mood & affect. Labs Laboratory Tests Test 12/16/21 05:20 Range/Units White Blood Count 3.0 L 4.3-11.0 10^3/uL Red Blood Count 1.93 L 4.30-5.52 10^6/uL Hemoglobin 6.2 *L 13.3-17.7 g/dL Hematocrit 18 *L 40-54 % Mean Corpuscular Volume 94 80-99 fL Mean Corpuscular Hemoglobin 32 25-34 pg Mean Corpuscular Hemoglobin Concent 34 32-36 g/dL Red Cell Distribution Width 19.2 H 10.0-14.5 % Platelet Count 67 L 130-400 10^3/uL Mean Platelet Volume 11.3 9.0-12.2 fL Immature Granulocyte % (Auto) 7 % Neutrophils (%) (Auto) 26 L 42-75 % Lymphocytes (%) (Auto) 42 12-44 % Monocytes (%) (Auto) 23 H 0-12 % Eosinophils (%) (Auto) 0 0-10 % Basophils (%) (Auto) 2 0-10 % Neutrophils # (Auto) 0.8 L 1.8-7.8 10^3/uL Lymphocytes # (Auto) 1.2 1.0-4.0 10^3/uL Monocytes # (Auto) 0.7 0.0-1.0 10^3/uL Eosinophils # (Auto) 0.0 0.0-0.3 10^3/uL Basophils # (Auto) 0.1 0.0-0.1 10^3/uL Immature Granulocyte # (Auto) 0.2 H 0.0-0.1 10^3/uL Percent Immature Platelet Fraction 6.3 0.0-7.6 % Sodium Level 132 L 135-145 MMOL/L Potassium Level 3.1 L 3.6-5.0 MMOL/L Chloride Level 102 98-107 MMOL/L Carbon Dioxide Level 20 L 21-32 MMOL/L Anion Gap 10 5-14 MMOL/L Blood Urea Nitrogen 18 7-18 MG/DL Creatinine 0.90 0.60-1.30 MG/DL Estimat Glomerular Filtration Rate 84 BUN/Creatinine Ratio 20 Glucose Level 103 70-105 MG/DL Calcium Level 8.1 L 8.5-10.1 MG/DL Corrected Calcium 9.1 8.5-10.1 MG/DL Total Bilirubin 1.6 H 0.1-1.0 MG/DL Aspartate Amino Transf (AST/SGOT) 17 5-34 U/L Alanine Aminotransferase (ALT/SGPT) 13 0-55 U/L Alkaline Phosphatase 49 40-136 U/L Total Protein 5.4 L 6.4-8.2 GM/DL Albumin 2.7 L 3.2-4.5 GM/DL Procalcitonin 0.32 H <0.10 NG/ML Diagnosis/Problems Diagnosis/Problems (1) Acute heart failure with preserved ejection fraction (HFpEF) Assessment & Plan: I suspect the majority of the patient's signs and symptoms are related to his profound anemia. However, his BNP was elevated and he did have some congestion on his chest x-ray. I suspect his symptoms will improve as his hemoglobin gets better with blood transfusions. It is also conceivable that due to the degree of mitral regurgitation noted on his echocardiogram, this could also be causing him to be short of breath. However, given the profound anemia, the mitral regurgitation may have been overestimated for his baseline hemodynamics if he were to have a normal hemoglobin level. (2) Mitral regurgitation Assessment & Plan: He appears to have severe mitral regurgitation. However, as above, he may have some degree of a hyperdynamic state at the time of the echocardiogram due to the severe anemia. I will consider a follow-up echocardiogram in 1-2 months. (3) Pulmonary hypertension Assessment & Plan: His echocardiogram shows moderate pulmonary hypertension. I suspect this is multifactorial due to his probable chronic obstructive pulmonary disease as well as some degree of chronic heart failure and mitral regurgitation. This will need to be followed longitudinally. (4) Primary hypertension Assessment & Plan: He remains normotensive on no antihypertensive medication. We will continue to monitor his blood pressure. (5) Mixed hyperlipidemia Assessment & Plan: He was on lovastatin at home which we do not have on formulary. I have ordered rosuvastatin. (6) Pancytopenia Status: Acute Assessment & Plan: Etiology unclear. He has been receiving packed red blood cells. Some of this may be related to alcohol abuse. The primary hospitalist is managing this condition. Since he may need some additional cardiac testing in the future, I have ordered a hematology consultation to help further evaluate the pancytopenia. This information will be necessary in the event we need him to undergo any invasive cardiac procedures in regards to the mitral regurgitation. (7) Cigarette smoker Assessment & Plan: He needs to quit smoking. He was counseled in this regard. EL CRUZ JR, MD Dec 16, 2021 09:00
--- NOTE | 2021-12-16 09:25 | Occupational Ther Daily Note ---
OT Current Status-Daily Note Subjective Pt alert, lying in bed. Visitor present in room. Pt agrees to therapy. No c/o pain. Mental Status/Objective Patient Orientation: Person, Place, Time, Situation Attachments: IV ADL-Treatment Supine <--> EOB independently with HOB raised. Pt stood with SBA while placing and using urinal to void, assist to empty. Pt ambulated around room with CGA for safety using FWW and assist to manipulate IV tubing. After therapy, pt lying in bed with call light/phone in reach. All needs met in room. Therapy Code Descriptions/Definitions Functional [place] Measure: 0=Not Assessed/NA 4=Minimal Assistance 1=Total Assistance 5=Supervision or Setup 2=Maximal Assistance 6=Modified [place] 3=Moderate Assistance 7=Complete IndependenceSCALE: Activities may be completed with or without assistive devices. 2-Acktwwowbw-jhoiyrt completes the activity by him/herself with no assistance from a helper. 5-Set-up or Clean-up Assistance-helper sets up or cleans up; patient completes activity. [place] assists only prior to or following the activity. 4-Supervision or Touching Assistance-helper provides verbal cues and/or touching/steadying and/or contact guard assistance as patient completes activity. Assistance may be provided throughout the activity or intermittently. 3-Partial/Moderate Assistance-helper does LESS THAN HALF the effort. [place] lifts, holds or supports trunk or limbs, but provides less than half the effort. 2-Substantial/Maximal Assistance-helper does MORE THAN HALF the effort. [place] lifts or holds trunk or limbs and provides more than half the effort. 4-Bstlyqpxg-qwpckw does ALL the effort. Patient does none of the effort to compl ete the activity. Or, the assistance of 2 or more helpers is required for the patient to complete the activity. If activity was not attempted, code reason: 7-Patient Refused. 9-Not Applicable-not attempted and the patient did not perform the activity before the current illness, exacerbation or injury. 10-Not Attempted due to Environmental Limitations-(lack of equipment, weather restraints, etc.). 88-Not Attempted due to Medical Conditions or Safety Concerns. Toileting Hygiene (QC): 4 Toilet Transfer (QC): 4 OT Social Services Director Goals Social Services Director Goals Time Frame: Dec 23, 2021 Eating (QC): 6 Oral Hygiene (QC): 6 Toileting Hygiene (QC): 6 Shower/Bathe Self (QC): 6 Upper Body Dressing (QC): 6 Lower Body Dressing (QC): 6 On/Off Footwear (QC): 6 Additional Goals: 1-Demonstrate ADL Tasks, 2-Verbalize Understanding, 3- ImproveStrength/Parris 1=Demonstrate adherence to instructed precautions during ADL tasks. 2=Patient will verbalize/demonstrate understanding of assistive devices/modifications for ADL. 3=Patient will improve strength/tolerance for activity to enable patient to perform ADL's. OT Education/Plan Problem List/Assessment Assessment: Decreased Activ Tolerance Discharge Recommendations Plan/Recommendations: Continue POC Treatment Plan/Plan of Care Patient would benefit from OT for education, treatment and training to promote independence in ADL's, mobility, safety and/or upper extremity function for ADL's. Plan of Care: ADL Retraining, Functional Mobility, UE Funct Exercise/Act Treatment Duration: Dec 23, 2021 Frequency: 3 times per week (3-5 times per week) Estimated Hrs Per Day: .25 hour per day Agreement: Yes Rehab Potential: Fair Time/GCodes Start Time: 08:40 Stop Time: 08:55 Total Time Billed (hr/min): 15 Billed Treatment Time 1 visit-FA 1 (15 min) SAMEERA VALADEZ Dec 16, 2021 09:25
--- NOTE | 2021-12-16 09:28 | Physical Therapy Daily Note ---
PT Daily Note-Current Subjective Pt laying Supine in bed upon arrival. Pt agrees to PT. Nurse reports pt will be getting blood shortly. Pain Location: No Pain Reported Mental Status Patient Orientation: Person, Place, Situation Attachments: IV Transfers SCALE: Activities may be completed with or without assistive devices. 1-Xemvmuvwve-iwjlelw completes the activity by him/herself with no assistance from a helper. 5-Set-up or Clean-up Assistance-helper sets up or cleans up; patient completes activity. [place] assists only prior to or following the activity. 4-Supervision or Touching Assistance-helper provides verbal cues and/or touching/steadying and/or contact guard assistance as patient completes activity. Assistance may be provided throughout the activity or intermittently. 3-Partial/Moderate Assistance-helper does LESS THAN HALF the effort. [place] lifts, holds or supports trunk or limbs, but provides less than half the effort. 2-Substantial/Maximal Assistance-helper does MORE THAN HALF the effort. [place] lifts or holds trunk or limbs and provides more than half the effort. 9-Faoqaydaf-ktkhsm does ALL the effort. Patient does none of the effort to complete the activity. Or, the assistance of 2 or more helpers is required for the patient to complete the activity. If activity was not attempted, code reason: 7-Patient Refused. 9-Not Applicable-not attempted and the patient did not perform the activity before the current illness, exacerbation or injury. 10-Not Attempted due to Environmental Limitations-(lack of equipment, weather restraints, etc.). 88-Not Attempted due to Medical Conditions or Safety Concerns. Lying to Sitting/Side of Bed(Q: 4 Sit to Stand (QC): 4 Weight Bearing Full Weight Bearing Full Weight Bearing Gait Training Does the Patient Walk?: Yes Distance: 15' x2 Walk 10 feet (QC): 4 Gait Persons Needed: 1 Gait Assistive Device: FWW Treatments TF to EOB then stands. Pt amb. in room as starting tx fatigued. Pt declines sitting in recliner and asks to return to bed. Pt returns to Supine in bed at end of tx. All needs met, call light in hand. Assessment Current Status: Fair Progress Fatigue limits how much pt is able to do today but pt will be receiving blood later. PT Benefits Representative Goals Benefits Representative Goals PT [facility] Goals Time Frame: Dec 22, 2021 Roll Left & Right (QC): 6 Sit to Lying (QC): 6 Lying-Sitting on Side/Bed(QC): 6 Sit to Stand (QC): 4 (SBA) Chair/Mng-oc-Nanbr Xfer(QC): 4 (SBA) Walk 10 feet (QC): 4 (SBA) Walk 50ft with 2 Turns (QC): 4 (SBA) Walk 150 ft (QC): 4 (SBA) PT Plan Problem List Problem List: Activity Tolerance Treatment/Plan Treatment Plan: Continue Plan of Care Treatment Plan: Education, Functional Activity [place], Functional Strength, Gait, Safety, Therapeutic Exercise, Transfers Treatment Duration: Dec 22, 2021 Frequency: 6 times per week Estimated Hrs Per Day: .25 hour per day Patient and/or Family Agrees t: Yes Time/GCodes Time In: 840 Time Out: 855 Total Billed Treatment Time: 15 Total Billed Treatment 1, GT (15m) CHRISTY NASCIMENTO CARE INFORMATION ASSOCIATE Dec 16, 2021 09:28
--- NOTE | 2021-12-16 09:55 | Oncology Consultation ---
Visit Information Visit Information Date of Admission December 13, 2021 at 15:50 Attending Physician Santhosh Tovar MD Admitting Physician Admitting Physician: Brooke Whitfield DO Attending Physician: Brooke Whitfield DO Chief Complaint Pancytopenia, alcoholism Interval History Mr. Taylor is an86 year old black man with long history of alcohol abuse. He presented to ER with weakness and was found to have pancytopenia, Hb 2.9 initially and had 4 units of RBC transfusion so far. His lab now Hb 6.2, WBC 3.0 Plt 67. He was actively drinking up the the admission. I consulted the patient on: 12/16/21 09:49 Time Seen by Provider: 09:50 Review of Systems Constitutional: weakness Respiratory: dyspnea on exertion Cardiovascular: chest pain Health Status Allergies Coded Allergies: No Known Drug Allergies (Unverified , 12/13/21) Home Medications Aspirin (Aspirin EC) 81 Mg Tablet.dr, 81 MG PO DAILY, (Reported) Cetirizine HCl (Cetirizine HCl) 10 Mg Tablet, 10 MG PO DAILY PRN for ALLERGIES, (Reported) Famotidine (Famotidine) 20 Mg Tablet, 20 MG PO HS, (Reported) Hydrochlorothiazide (Hydrochlorothiazide) 25 Mg Tablet, 25 MG PO HS, (Reported) Lovastatin (Lovastatin) 40 Mg Tablet, 40 MG PO DAILY, (Reported) Tramadol HCl (Tramadol HCl) 50 Mg Tablet, 50 MG PO BID PRN for PAIN-MODERATE (5- 7), (Reported) Trazodone HCl (Trazodone HCl) 50 Mg Tablet, 50 MG PO HS, (Reported) PBD-Uciveb-Pmdayx Hx Patient Social History Marrital Status: single Employed/Student: retired Smoking Status: Current Everyday Smoker Alcohol Use?: Yes Have you traveled recently?: No Family Medical History Significant Family History: Cancer (pt denied any cancer in his parents), Diabetes (said he had some nieces who had DM) Physical Exam Vital Signs Vital Signs - First Documented 12/13/21 12/13/21 12/15/21 13:03 16:47 09:48 Temp 36.8 Pulse 102 Resp 18 B/P (MAP) 115/53 (73) Pulse Ox 100 O2 Delivery Room Air O2 Flow Rate 0.00 FiO2 21 Capillary Refill : Height, Weight, BMI Height: '" Weight: lbs. oz. kg; 23.01 BMI Method: General Appearance: No Apparent Distress Neck: Supple Respiratory: No Accessory Muscle Use, No Respiratory Distress Gastrointestinal: Non Tender, Soft Extremity: Non Tender Neurologic/Psychiatric: Alert, Oriented x3 Data Review Labs Laboratory Tests 12/16/21 05:20 Laboratory Tests 12/13/21 17:17: Iron Level 229H, Total Iron Binding Capacity See Est TIBCH, Transferrin % Saturation See Est %SatH, Ferritin 931.3H 12/13/21 23:48: Glucometer 156H 12/14/21 05:39: Glucometer 113H 12/14/21 07:47: White Blood Count 4.0L, Red Blood Count 2.17L, Hemoglobin 6.9#*L, Hematocrit 20*L, Red Cell Distribution Width 19.0H, Platelet Count 110L, Neutrophils (%) (Auto) 27L, Monocytes (%) (Auto) 25H, Neutrophils # (Auto) 1.1L, Immature Granulocyte # (Auto) 0.4H, Potassium Level 3.3L, Carbon Dioxide Level 19L, Anion Gap 15H, Blood Urea Nitrogen 31H, Glucose Level 117H, Total Bilirubin 3.5H, HDL Cholesterol 23L 12/14/21 13:43: 12/15/21 07:04: White Blood Count 3.2L, Red Blood Count 2.25L, Hemoglobin 7.1L, Hematocrit 21L, Red Cell Distribution Width 20.1H, Platelet Count 95L, Neutrophils (%) (Auto) 33L, Monocytes (%) (Auto) 25H, Neutrophils # (Auto) 1.0L, Immature Granulocyte # (Auto) 0.3H, Potassium Level 3.3L, Carbon Dioxide Level 19L, Blood Urea Nitrogen 23H, Total Bilirubin 1.8H, Total Protein 6.2L, Albumin 3.0L 12/16/21 05:20: White Blood Count 3.0L, Red Blood Count 1.93L, Hemoglobin 6.2*L, Hematocrit 18*L , Red Cell Distribution Width 19.2H, Platelet Count 67L, Neutrophils (%) (Auto) 26L, Monocytes (%) (Auto) 23H, Neutrophils # (Auto) 0.8L, Immature Granulocyte # (Auto) 0.2H, Potassium Level 3.1L, Carbon Dioxide Level 20L, Total Bilirubin 1.6 H, Total Protein 5.4L, Albumin 2.7L, Sodium Level 132L, Calcium Level 8.1L, Procalcitonin 0.32H 12/16/21 11:51: Urine Protein TRACEH, Urine Mucus SMALLH Impression & Plan Impression & Plan IMP: 1. Pancytopenia, macrocytic anemia, most likely due to alcoholism and B12 and folate deficiency. But can not completely rule out MDS. 2. Alcoholism Rec: 1. B12 injection 1mg IM monthly 2. Folate 1mg daily PO. 3. Multi-vitamin tabs once daily for other vitamins and minerals 4. See me in a month [facility]/19/[facility]-patient. If his CBC still not improving, then bone marrow exam. I have given pt the appointment card today. 5. Monitoring alcohol withdraw issues. TANNER ACEVES MD Dec 16, 2021 09:55
[2021-12-16 12:13] LABS: BILIRUBIN,URINE NEGATIVE (NEGATIVE); CLARITY,URINE CLEAR; COLOR,URINE DARK YELLOW; GLUCOSE, URINE (UA) NEGATIVE (NEGATIVE); KETONES,URINE NEGATIVE (NEGATIVE); LEUKOCYTE ESTERASE ,URINE NEGATIVE (NEGATIVE); NITRITE,URINE NEGATIVE (NEGATIVE); PROTEIN,URINE TRACE (NEGATIVE)
[2021-12-16 12:21] LABS: BACTERIA,URINE NEGATIVE /HPF; SQUAMOUS EPITHELIAL CELL,UR RARE /HPF; WBC,URINE RARE /HPF
[2021-12-16] MEDS: ONDANSETRON 4 MG/2 ML (SDV) Z0FRAN IV PRN (15:01)
[2021-12-16] MEDS: FAMOTIDINE 20 MG (PEPCID) TABLET PO SCH (20:25)
[2021-12-16] MEDS: ROSUVASTATIN 20 MG (CRESTOR) TABLET PO SCH (20:25)
[2021-12-16] MEDS: traZODone 50 MG (DESYREL) TAB PO SCH (20:26)
[2021-12-17 04:00] VITALS: BP 108/59
[2021-12-17 05:41] LABS: HEMATOCRIT 21 % (40-54); MEAN CORPUSCULAR VOLUME 93 fL (80-99)
[2021-12-17 05:44] LABS: BASOPHILS # (AUTO) 0.1 10^3/uL (0.0-0.1); BASOPHILS % (AUTO) 2 % (0-10); EOSINOPHILS # (AUTO) 0.1 10^3/uL (0.0-0.3); EOSINOPHILS % (AUTO) 2 % (0-10); LYMPHOCYTES # (AUTO) 1.3 10^3/uL (1.0-4.0); LYMPHOCYTES % (AUTO) 41 % (12-44); MEAN CORPUSCULAR HEMOGLOBIN 31 pg (25-34); MEAN CORPUSCULAR HGB CONC 34 g/dL (32-36); MEAN PLATELET VOLUME 10.7 fL (9.0-12.2); MONOCYTES # (AUTO) 0.7 10^3/uL (0.0-1.0); MONOCYTES % (AUTO) 21 % (0-12); NEUTROPHILS # (AUTO) 0.9 10^3/uL (1.8-7.8); NEUTROPHILS % (AUTO) 29 % (42-75); PLATELET COUNT 48 10^3/uL (130-400); WHITE BLOOD COUNT 3.2 10^3/uL (4.3-11.0)
[2021-12-17 05:50] LABS: ALBUMIN 2.7 GM/DL (3.2-4.5); POTASSIUM 3.4 MMOL/L (3.6-5.0)
[2021-12-17 05:53] LABS: TOTAL PROTEIN 5.5 GM/DL (6.4-8.2)
[2021-12-17 05:54] LABS: BILIRUBIN,TOTAL 1.3 MG/DL (0.1-1.0)
[2021-12-17 05:56] LABS: CREATININE SERUM 0.76 MG/DL (0.60-1.30)
[2021-12-17 05:59] LABS: HEMOGLOBIN 6.9 g/dL (13.3-17.7)
[2021-12-17 08:00] VITALS: BP 104/57
[2021-12-17] MEDS ORDERED: CYANOCOBALAMIN INJ 1000 MCG/ML IM ONE (09:30)
[2021-12-17] MEDS: PANTOPRAZOLE 40 MG (PROTONIX) VIAL IV SCH (10:11)
[2021-12-17] MEDS: FOLIC ACID 1 MG TAB PO SCH (10:11)
[2021-12-17] MEDS: AtorvaSTATin TABLET 10 MG TABLET PO SCH (10:11)
[2021-12-17] MEDS: DOCUSATE SODIUM 100 MG (COLACE) CAP PO SCH ×2 (10:11→20:37)
[2021-12-17] MEDS: MULTIVIT W/IRON DROPS 50 ML (POLY-VI-SOL W/IRON) PO SCH (10:11)
--- NOTE | 2021-12-17 11:18 | Progress Note - Hospitalist ---
Subjective HPI/CC On Admission Date Seen by Provider: Dec 17, 2021 Time Seen by Provider: 10:15 CC: Anemia HPI: This is an 86 yr old black male of [facility] Dr. Tovar. He presented to the [place] ER with weakness and was found to have a hemoglobin of 2.9 and MCV of 113. He has a history of alcoholism. Supposedly no alcohol use for 3 months. His status post 3 units of blood transfusion his hemoglobin was 6.9. Dr. Morris will be consulted for elevated BNP and CHF. Dr. Marte has been consulted for EGD. Will transfer to 4th floor since he is stable. Subjective/Events-last exam Patient voices no complaints this morning was hoping for discharge. Chronically ill in appearance but does not appear to be in acute distress. Objective Exam Vital Signs Vital Signs Date Time Temp Pulse Resp B/P (MAP) Pulse Ox O2 Delivery O2 Flow Rate FiO2 12/17/21 08:00 37.3 94 16 104/57 (73) 96 Room Air 12/16/21 23:29 21 12/16/21 08:19 0.00 Capillary Refill : General Appearance: No Apparent Distress, Chronically ill Respiratory: Chest Non Tender, Lungs Clear, Normal Breath Sounds, No Accessory Muscle Use, No Respiratory Distress Cardiovascular: Regular Rate, Rhythm, No Gallop, Systolic Murmur ([place] best at the apex somewhat blowing in consistency. 08/21) Results/Procedures Lab Laboratory Tests 12/17/21 05:14 Patient resulted labs reviewed. Assessment/Plan Assessment and Plan Assess & Plan/Chief Complaint 1. Pancytopenia with worsening thrombocytopenia platelet count down to 48,000 for this reason we will hold discharge. Clearly alcoholism with bone marrow toxicity is contributing but myelodysplasia or possible underlying hematologic malignancy are in the differential diagnosis. hemoglobin 6.8 with no evidence for hematoma compromise in individual who is likely been anemic for a long time slowly worsening hold further transfusion for now. 2. Congestive heart failure multifactorial appears compensated at this time Clinical Quality Measures DVT/VTE Risk/Contraindication: Contraindications-Pharm: Other *list below* Other: HADLEY Valentine MD Dec 17, 2021 11:18
[2021-12-17 12:00] VITALS: BP_SYST 123; BP_SYST 146; BP_DIAS 60; BP_DIAS 81
--- NOTE | 2021-12-17 12:38 | Physical Therapy Daily Note ---
PT Daily Note-Current Subjective Pt supine in bed upon arrival to room, agreeable to PT treatment at this time. Denies any pain Appearance Following session, pt supine in bed with call light, tray table and phone within reach. Pt brother at bedside, all needs met Mental Status Patient Orientation: Person Transfers SCALE: Activities may be completed with or without assistive devices. 1-Xudvlptyfq-qlbphou completes the activity by him/herself with no assistance from a helper. 5-Set-up or Clean-up Assistance-helper sets up or cleans up; patient completes activity. [place] assists only prior to or following the activity. 4-Supervision or Touching Assistance-helper provides verbal cues and/or touching/steadying and/or contact guard assistance as patient completes activity. Assistance may be provided throughout the activity or intermittently. 3-Partial/Moderate Assistance-helper does LESS THAN HALF the effort. [place] lifts, holds or supports trunk or limbs, but provides less than half the effort. 2-Substantial/Maximal Assistance-helper does MORE THAN HALF the effort. [place] lifts or holds trunk or limbs and provides more than half the effort. 5-Xolscrobn-kemevs does ALL the effort. Patient does none of the effort to complete the activity. Or, the assistance of 2 or more helpers is required for the patient to complete the activity. If activity was not attempted, code reason: 7-Patient Refused. 9-Not Applicable-not attempted and the patient did not perform the activity before the current illness, exacerbation or injury. 10-Not Attempted due to Environmental Limitations-(lack of equipment, weather restraints, etc.). 88-Not Attempted due to Medical Conditions or Safety Concerns. Roll Left & Right (QC): 5 Sit to Lying (QC): 5 Lying to Sitting/Side of Bed(Q: 5 Sit to Stand (QC): 5 Weight Bearing Full Weight Bearing Full Weight Bearing Gait Training Distance: 100' Walk 10 feet (QC): 4 Gait Assistive Device: FWW Pt has a couple episodes of high knee marching, pt reports he is just "working his knees out" Assessment Current Status: Good Progress Pt able to increase ambulation distance this date, and tolerated well. PT Nursing Home Goals Fire Pilot Goals PT Fire Pilot Goals Time Frame: Dec 22, 2021 Roll Left & Right (QC): 6 Sit to Lying (QC): 6 Lying-Sitting on Side/Bed(QC): 6 Sit to Stand (QC): 4 (SBA) Chair/Heo-ef-Jspcf Xfer(QC): 4 (SBA) Walk 10 feet (QC): 4 (SBA) Walk 50ft with 2 Turns (QC): 4 (SBA) Walk 150 ft (QC): 4 (SBA) PT Plan Problem List Problem List: Activity Tolerance, Functional Strength, Safety, Balance, Gait, Transfer, Bed Mobility, ROM Treatment/Plan Treatment Plan: Continue Plan of Care Treatment Plan: Education, Functional Activity [place], Functional Strength, Gait, Safety, Therapeutic Exercise, Transfers Treatment Duration: Dec 22, 2021 Frequency: 6 times per week Estimated Hrs Per Day: .25 hour per day Patient and/or Family Agrees t: Yes Time/GCodes Time In: 1222 Time Out: 1230 Total Billed Treatment Time: 8 Total Billed Treatment 1 visit GT (8') GONZALEZ DOWNING PT Dec 17, 2021 12:38
--- NOTE | 2021-12-17 13:05 | Cardiology Progress Note ---
Subjective Date Seen by Provider: Dec 17, 2021 Time Seen by Provider: 13:01 Subjective/Events-last exam Patient was seen at bedside, laying down comfortably. Reporting improvement in his symptoms, feeling better. No new complaint. Review of Systems General: No Chills, No Night Sweats; Fatigue; No Appetite, No Other HEENT: No Head Aches, No Visual Changes, No Eye Pain, No Ear Pain, No Dysphasia, No Sinus Congestion, No Post Nasal Drip, No Sore Throat, No Other Pulmonary: No Dyspnea, No Cough, No Pleuritic Chest Pain, No Other Cardiovascular: No: Chest Pain, Palpitations, Orthopnea, Paroxysmal Noc. Dyspnea, Edema, Lt Headedness, Other Objective-Cardiology Exam Last Set of Vital Signs Vital Signs 12/16/21 12/16/21 12/17/21 08:19 23:29 08:00 Temp 37.3 Pulse 94 Resp 16 B/P (MAP) 104/57 (73) Pulse Ox 96 O2 Delivery Room Air O2 Flow Rate 0.00 FiO2 21 I&O Intake and Output 12/17/21 00:00 Intake Total 2755.2 ml Output Total 1125 ml Balance 1630.2 ml Intake Oral 1540 ml IV Total 1215.2 ml Output Urine Total 1125 ml # Voids 1 General: Alert, Oriented X3, Cooperative HEENT: Atraumatic, PERRLA Neck: Supple, No JVD, No Thyromegaly Lungs: Clear to Auscultation, Normal Air Movement Heart: Regular Rate, Normal S1, Normal S2, No Murmurs Abdomen: Normal Bowel Sounds, Soft, No Tenderness, No Hepatosplenomegaly, No Masses Extremities: No Clubbing, No Cyanosis, No Edema, Normal Pulses, No Tenderne ss/Swelling Skin: No Rashes, No Breakdown, No Significant Lesion Neuro: Normal Gait, Normal Speech, Strength at 5/5 X4 Ext, Normal Tone, Sensation Intact Psych/Mental Status: Mental Status NL, Mood NL Results Lab Laboratory Tests 12/17/21 05:14 A/P-Cardiology Admission Diagnosis Congestive heart failure, acute on chronic left ventricular diastolic dysfunction Severe mitral regurgitation Pulmonary hypertension Pancytopenia Assessment/Plan Congestive heart failure. Acute left ventricular diastolic dysfunction. Normal systolic function. Better at this time. Continue on current treatment and monitor 2D echo was done on December 15, 2021 reported normal left ventricular systolic function with ejection fraction 55 to 60%, grade 2 diastolic dysfunction. Biatrial enlargement, severe mitral regurgitation and moderate tricuspid regurgitation, pulmonary hypertension with PA pressure 60 mmHg. Pancytopenia, anemia, received blood transfusion, still having thrombocytopenia. Managed by medical team. Pulmonary hypertension, probably secondary to severe mitral regurgitation. Consider evaluation for mitral clip. Tobaccoism, educated on smoking cessation. MISHA PERSAUD MD Dec 17, 2021 13:05
[2021-12-17 15:58] VITALS: BP 169/91
[2021-12-17 16:09] VITALS: BP 137/65
[2021-12-17 19:13] VITALS: BP 110/59
[2021-12-17] MEDS: traZODone 50 MG (DESYREL) TAB PO SCH (20:37)
[2021-12-17] MEDS: ROSUVASTATIN 20 MG (CRESTOR) TABLET PO SCH (20:37)
[2021-12-17] MEDS: FAMOTIDINE 20 MG (PEPCID) TABLET PO SCH (20:37)
[2021-12-18] VITALS (7 sets, daily range): BP systolic 106–124; BP diastolic 53–98
[2021-12-18 06:06] LABS: ALBUMIN 2.6 GM/DL (3.2-4.5)
[2021-12-18 06:07] LABS: POTASSIUM 3.3 MMOL/L (3.6-5.0)
[2021-12-18 06:09] LABS: BASOPHILS # (AUTO) 0.1 10^3/uL (0.0-0.1); BASOPHILS % (AUTO) 2 % (0-10); EOSINOPHILS # (AUTO) 0.1 10^3/uL (0.0-0.3); EOSINOPHILS % (AUTO) 3 % (0-10); HEMATOCRIT 21 % (40-54); LYMPHOCYTES # (AUTO) 1.2 10^3/uL (1.0-4.0); LYMPHOCYTES % (AUTO) 45 % (12-44); MEAN CORPUSCULAR HEMOGLOBIN 30 pg (25-34); MEAN CORPUSCULAR HGB CONC 33 g/dL (32-36); MEAN CORPUSCULAR VOLUME 93 fL (80-99); MONOCYTES # (AUTO) 0.5 10^3/uL (0.0-1.0); MONOCYTES % (AUTO) 18 % (0-12); NEUTROPHILS # (AUTO) 0.7 10^3/uL (1.8-7.8); NEUTROPHILS % (AUTO) 25 % (42-75); PLATELET COUNT 43 10^3/uL (130-400); TOTAL PROTEIN 5.4 GM/DL (6.4-8.2); WHITE BLOOD COUNT 2.6 10^3/uL (4.3-11.0)
[2021-12-18 06:10] LABS: HEMOGLOBIN 6.8 g/dL (13.3-17.7)
[2021-12-18 06:11] LABS: BILIRUBIN,TOTAL 1.6 MG/DL (0.1-1.0)
[2021-12-18 06:13] LABS: CREATININE SERUM 0.69 MG/DL (0.60-1.30)
[2021-12-18] MEDS: PANTOPRAZOLE 40 MG (PROTONIX) VIAL IV SCH (08:55)
[2021-12-18] MEDS: MULTIVIT W/IRON DROPS 50 ML (POLY-VI-SOL W/IRON) PO SCH (08:56)
[2021-12-18] MEDS: ONDANSETRON 4 MG/2 ML (SDV) Z0FRAN IV PRN (08:56)
[2021-12-18] MEDS: FOLIC ACID 1 MG TAB PO SCH (08:56)
[2021-12-18] MEDS: DOCUSATE SODIUM 100 MG (COLACE) CAP PO SCH ×2 (08:58→20:09)
[2021-12-18] MEDS: AtorvaSTATin TABLET 10 MG TABLET PO SCH (09:02)
--- NOTE | 2021-12-18 10:43 | Progress Note - Hospitalist ---
Subjective HPI/CC On Admission Date Seen by Provider: Dec 18, 2021 Time Seen by Provider: 09:30 CC: Anemia HPI: This is an 86 yr old black male of [facility] Dr. Tovar. He presented to the [facility] with weakness and was found to have a hemoglobin of 2.9 and MCV of 113. He has a history of alcoholism. Supposedly no alcohol use for 3 months. His status post 3 units of blood transfusion his hemoglobin was 6.9. Dr. Morris will be consulted for elevated BNP and CHF. Dr. Marte has been consulted for EGD. Will transfer to 4th floor since he is stable. Subjective/Events-last exam Patient voices no complaints and was hoping to be discharged. He has had no night sweats chills fever there is been no reports of agitation. Appetite remains poor without abdominal pain or nausea. Objective Exam Vital Signs Vital Signs Date Time Temp Pulse Resp B/P (MAP) Pulse Ox O2 Delivery O2 Flow Rate FiO2 12/18/21 08:36 37.2 96 18 106/59 (75) 98 Room Air 12/16/21 23:29 21 12/16/21 08:19 0.00 Capillary Refill : General Appearance: No Apparent Distress, Chronically ill Respiratory: Chest Non Tender, Lungs Clear, Normal Breath Sounds, No Accessory Muscle Use, No Respiratory Distress Cardiovascular: Regular Rate, Rhythm, No JVD, Systolic Murmur (Holosystolic 2-3 over 6 heard best at the apex with some axillary radiation), Gallop/S4 Gastrointestinal: Normal Bowel Sounds, No Organomegaly, No Pulsatile Mass, Non Tender, Soft Extremity: Pedal Edema Results/Procedures Lab Laboratory Tests 12/18/21 05:23 Patient resulted labs reviewed. Assessment/Plan Assessment and Plan Assess & Plan/Chief Complaint 1. Pancytopenia with worsening thrombocytopenia And neutropenia platelet count down to 43,000 and ANC level down to approximately 550 for this reason we will hold discharge. discussed not only bleeding risk but even a bigger concern is infection risk. We will repeat his counts in the morning and he will likely need bone marrow evaluation. Clearly alcoholism with bone marrow toxicity is contributing but myelodysplasia or possible underlying hematologic malignancy are in the differential diagnosis. hemoglobin stable 6.7 with no evidence for hemodynamic compromise in individual who is likely been anemic for a long time slowly worsening hold further transfusion for now. 2. Congestive heart failure multifactorial appears compensated at this time Clinical Quality Measures DVT/VTE Risk/Contraindication: Contraindications-Pharm: Other *list below* Other: HADLEY Valentine MD Dec 18, 2021 10:43
--- NOTE | 2021-12-18 12:15 | Cardiology Progress Note ---
Subjective Date Seen by Provider: Dec 18, 2021 Time Seen by Provider: 12:13 Subjective/Events-last exam Patient was seen at bedside, sitting comfortably, feeling better. No new complaint Review of Systems General: No Chills, No Night Sweats, No Fatigue, No Malaise, No Appetite, No Other HEENT: No Head Aches, No Visual Changes, No Eye Pain, No Ear Pain, No Dysphasia, No Sinus Congestion, No Post Nasal Drip, No Sore Throat, No Other Pulmonary: No Dyspnea, No Cough, No Pleuritic Chest Pain, No Other Cardiovascular: No: Chest Pain, Palpitations, Orthopnea, Paroxysmal Noc. Dyspnea, Edema, Lt Headedness, Other Objective-Cardiology Exam Last Set of Vital Signs Vital Signs 12/16/21 12/16/21 12/18/21 08:19 23:29 11:55 Temp 37.2 Pulse 96 Resp 17 B/P (MAP) 117/98 (104) Pulse Ox 98 O2 Delivery Room Air O2 Flow Rate 0.00 FiO2 21 I&O Intake and Output 12/18/21 00:00 Intake Total 1230 ml Output Total 920 ml Balance 310 ml Intake Oral 1230 ml Output Urine Total 920 ml # Bowel Movements 1 General: Alert, Oriented X3, Cooperative HEENT: Atraumatic, PERRLA Neck: Supple, No JVD, No Thyromegaly Lungs: Clear to Auscultation, Normal Air Movement Heart: Regular Rate, Normal S1, Normal S2, No Murmurs Abdomen: Normal Bowel Sounds, Soft, No Tenderness, No Hepatosplenomegaly, No Masses Extremities: No Clubbing, No Cyanosis, No Edema, Normal Pulses, No Tenderness/Swelling Skin: No Rashes, No Breakdown, No Significant Lesion Neuro: Normal Gait, Normal Speech, Strength at 5/5 X4 Ext, Normal Tone, Sensation Intact Psych/Mental Status: Mental Status NL, Mood NL Results Lab Laboratory Tests 12/18/21 05:23 A/P-Cardiology Admission Diagnosis Congestive heart failure, acute on chronic left ventricular diastolic dysfunction Severe mitral regurgitation Pulmonary hypertension Pancytopenia Assessment/Plan Congestive heart failure. Acute left ventricular diastolic dysfunction. Normal systolic function. Better at this time. Continue on current treatment and monitor 2D echo was done on December 15, 2021 reported normal left ventricular systolic function with ejection fraction 55 to 60%, grade 2 diastolic dysfunction. Biatrial enlargement, severe mitral regurgitation and moderate tricuspid regurgitation, pulmonary hypertension with PA pressure 60 mmHg. Pancytopenia, anemia, received blood transfusion, still having thrombocytopenia. Managed by medical team. Pulmonary hypertension, probably secondary to severe mitral regurgitation. Consider evaluation for mitral clip. Tobaccoism, educated on smoking cessation. Alcoholism, patient reported that he did not use alcohol for the past 3 months, managed and followed by primary care physician MISHA PERSAUD MD Dec 18, 2021 12:15
[2021-12-18] MEDS: FAMOTIDINE 20 MG (PEPCID) TABLET PO SCH (20:09)
[2021-12-18] MEDS: ROSUVASTATIN 20 MG (CRESTOR) TABLET PO SCH (20:09)
[2021-12-18] MEDS: traZODone 50 MG (DESYREL) TAB PO SCH (20:09)
[2021-12-19 04:00] VITALS: BP 103/55
[2021-12-19 05:56] LABS: BASOPHILS # (AUTO) 0.1 10^3/uL (0.0-0.1); BASOPHILS % (AUTO) 3 % (0-10); EOSINOPHILS # (AUTO) 0.1 10^3/uL (0.0-0.3); EOSINOPHILS % (AUTO) 3 % (0-10); LYMPHOCYTES # (AUTO) 1.3 10^3/uL (1.0-4.0); LYMPHOCYTES % (AUTO) 55 % (12-44); MEAN CORPUSCULAR HEMOGLOBIN 31 pg (25-34); MEAN CORPUSCULAR HGB CONC 33 g/dL (32-36); MEAN CORPUSCULAR VOLUME 93 fL (80-99); MEAN PLATELET VOLUME 11.1 fL (9.0-12.2); MONOCYTES # (AUTO) 0.4 10^3/uL (0.0-1.0); MONOCYTES % (AUTO) 15 % (0-12); NEUTROPHILS # (AUTO) 0.4 10^3/uL (1.8-7.8); NEUTROPHILS % (AUTO) 17 % (42-75); PLATELET COUNT 46 10^3/uL (130-400); WHITE BLOOD COUNT 2.4 10^3/uL (4.3-11.0)
[2021-12-19 05:59] LABS: HEMATOCRIT 20 % (40-54); HEMOGLOBIN 6.7 g/dL (13.3-17.7)
[2021-12-19 06:09] LABS: ALBUMIN 2.5 GM/DL (3.2-4.5)
[2021-12-19 06:10] LABS: POTASSIUM 3.4 MMOL/L (3.6-5.0)
[2021-12-19 06:11] LABS: CALCIUM 7.9 MG/DL (8.5-10.1)
[2021-12-19 06:12] LABS: TOTAL PROTEIN 5.3 GM/DL (6.4-8.2)
[2021-12-19 06:16] LABS: CREATININE SERUM 0.69 MG/DL (0.60-1.30)
[2021-12-19 07:42] VITALS: BP 111/64
[2021-12-19] MEDS: MULTIVIT W/IRON DROPS 50 ML (POLY-VI-SOL W/IRON) PO SCH (08:26)
[2021-12-19] MEDS: PANTOPRAZOLE 40 MG (PROTONIX) VIAL IV SCH (08:26)
[2021-12-19] MEDS: DOCUSATE SODIUM 100 MG (COLACE) CAP PO SCH ×2 (08:26→20:25)
[2021-12-19] MEDS: AtorvaSTATin TABLET 10 MG TABLET PO SCH (08:26)
[2021-12-19] MEDS: FOLIC ACID 1 MG TAB PO SCH (08:26)
--- NOTE | 2021-12-19 11:09 | Cardiology Progress Note ---
Subjective Date Seen by Provider: Dec 19, 2021 Time Seen by Provider: 11:09 Subjective/Events-last exam Patient was seen at bedside, sitting comfortably in a chair, no new complaint. Denied any chest pain or shortness of breath. Asking about going home. Review of Systems General: No Chills, No Night Sweats; Fatigue; No Malaise, No Appetite, No Other HEENT: No Head Aches, No Visual Changes, No Eye Pain, No Ear Pain, No Dysphasia, No Sinus Congestion, No Post Nasal Drip, No Sore Throat, No Other Pulmonary: No Dyspnea, No Cough, No Pleuritic Chest Pain, No Other Cardiovascular: No: Chest Pain, Palpitations, Orthopnea, Paroxysmal Noc. Dyspnea, Edema, Lt Headedness, Other Objective-Cardiology Exam Last Set of Vital Signs Vital Signs 12/16/21 12/18/21 12/19/21 12/19/21 08:19 21:00 07:42 09:00 Temp 37.0 Pulse 93 Resp 19 B/P (MAP) 111/64 (80) Pulse Ox 98 O2 Delivery Room Air O2 Flow Rate 0.00 FiO2 97 I&O Intake and Output 12/19/21 00:00 Intake Total 1665 ml Output Total 550 ml Balance 1115 ml Intake Oral 1665 ml Output Urine Total 550 ml # Voids 4 # Bowel Movements 2 General: Alert, Oriented X3, Cooperative HEENT: Atraumatic, PERRLA Neck: Supple, No JVD, No Thyromegaly Lungs: Clear to Auscultation, Normal Air Movement Heart: Regular Rate, Normal S1, Normal S2, No Murmurs Abdomen: Normal Bowel Sounds, Soft, No Tenderness, No Hepatosplenomegaly, No Masses Extremities: No Clubbing, No Cyanosis, No Edema, Normal Pulses, No Tenderness/Swelling Skin: No Rashes, No Breakdown, No Significant Lesion Neuro: Normal Gait, Normal Speech, Strength at 5/5 X4 Ext, Normal Tone, Sensation Intact Psych/Mental Status: Mental Status NL, Mood NL Results Lab Laboratory Tests 12/19/21 05:50 A/P-Cardiology Admission Diagnosis Congestive heart failure, acute on chronic left ventricular diastolic dysfunction Severe mitral regurgitation Pulmonary hypertension Pancytopenia Assessment/Plan Congestive heart failure. Acute left ventricular diastolic dysfunction. Normal systolic function. Better at this time. Conservative management, okay for discharge from cardiology standpoint and follow-up as an outpatient with Dr. Morris 2D echo was done on December 15, 2021 reported normal left ventricular systolic function with ejection fraction 55 to 60%, grade 2 diastolic dysfunction. Biatrial enlargement, severe mitral regurgitation and moderate tricuspid regurgitation, pulmonary hypertension with PA pressure 60 mmHg. Pancytopenia, anemia, received blood transfusion, still having thrombocytopenia. Managed by medical team. Pulmonary hypertension, probably secondary to severe mitral regurgitation. Consider evaluation for mitral clip. Tobaccoism, educated on smoking cessation. Alcoholism, patient reported that he did not use alcohol for the past 3 months, managed and followed by primary care physician MISHA PERSAUD MD Dec 19, 2021 11:09
--- NOTE | 2021-12-19 11:11 | Physical Therapy Progress Note ---
Therapy Progress Note Patient and brother in room. Both report patient is up independently in room and ambulating PRN in hallway. Patient declined PT at this time due to up with family. RN notified. 1 ref MONSE STALEY PT Dec 19, 2021 11:11
[2021-12-19 11:36] VITALS: BP 102/52
--- NOTE | 2021-12-19 14:05 | Occ Therapy Progress Note ---
Therapy Progress Note Per pt and family, pt has been completing all ADLs by self. Pt and family do not have any questions concerning any ADLs or modifications to home environment for pt. Discharge pt from OT services at this time. Pt has met all goals. SAMEERA VALADEZ Dec 19, 2021 14:04
--- NOTE | 2021-12-19 14:53 | Progress Note ---
Subjective Subjective/Events-last exam Patient is feeling good this AM. Denies any pain. Tolerating PO diet and ambulation to the bathroom. Review of Systems Pulmonary: No Dyspnea, No Cough Cardiovascular: No: Chest Pain, Palpitations, Edema Gastrointestinal: No: Nausea, Vomiting, Abdominal Pain, Diarrhea, Constipation Neurological: Weakness, Incoordination Objective Exam Last Set of Vital Signs Vital Signs Date Time Temp Pulse Resp B/P (MAP) Pulse Ox O2 Delivery O2 Flow Rate FiO2 12/19/21 11:36 36.8 93 17 102/52 (69) 98 Room Air 12/18/21 21:00 97 12/16/21 08:19 0.00 Capillary Refill : I&O Intake and Output 12/19/21 00:00 Intake Total 1665 ml Output Total 550 ml Balance 1115 ml Intake Oral 1665 ml Output Urine Total 550 ml # Voids 4 # Bowel Movements 2 General: Alert, Oriented X3, No Acute Distress Lungs: Clear to Auscultation, Normal Air Movement Heart: Regular Rate, No Murmurs Abdomen: Normal Bowel Sounds, Soft, No Tenderness, No Masses Extremities: No Edema, No Tenderness/Swelling Neuro: Normal Speech Results/Procedures Lab Laboratory Tests 12/19/21 05:50: White Blood Count 2.4L, Red Blood Count 2.17L, Hemoglobin 6.7*L, Hematocrit 20*L , Mean Corpuscular Volume 93, Mean Corpuscular Hemoglobin 31, Mean Corpuscular Hemoglobin Concent 33, Red Cell Distribution Width 16.6H, Platelet Count 46L, Mean Platelet Volume 11.1, Immature Granulocyte % (Auto) 8, Neutrophils (%) (Auto) 17L, Lymphocytes (%) (Auto) 55H, Monocytes (%) (Auto) 15H, Eosinophils (%) (Auto) 3, Basophils (%) (Auto) 3, Neutrophils # (Auto) 0.4L, Lymphocytes # (Auto) 1.3, Monocytes # (Auto) 0.4, Eosinophils # (Auto) 0.1, Basophils # (Auto) 0.1, Immature Granulocyte # (Auto) 0.2H, Sodium Level 130L, Potassium Level 3.4L , Chloride Level 101, Carbon Dioxide Level 20L, Anion Gap 9, Blood Urea Nitrogen 10, Creatinine 0.69, Estimat Glomerular Filtration Rate 91, BUN/Creatinine Ratio 14, Glucose Level 111H, Calcium Level 7.9L, Corrected Calcium 9.1, Total Bilirubin 1.0, Aspartate Amino Transf (AST/SGOT) 28, Alanine Aminotransferase (ALT/SGPT) 31, Alkaline Phosphatase 59, Total Protein 5.3L, Albumin 2.5L Radiology Signed Date of Exam:12/13/21 CHEST 1 VIEW AP/PA ONLY INDICATION: Dizziness and dyspnea. TECHNIQUE/COMPARISON: A portable AP upright view of the chest was obtained. There is no previous study for comparison. FINDINGS: There is mild cardiomegaly and pulmonary venous congestion. Increased density is seen in the perihilar regions of both lungs without lobar consolidation, pneumothorax, or pleural fluid. IMPRESSION: Findings suggest mild congestive heart failure and central pulmonary edema. Dictated by: Dictated on workstation # [id number] Dict: 12/13/21 1349 Trans: 12/13/21 1701 [id number] Interpreted by: BK PAGE MD Electronically signed by: BK PAGE MD 12/13/21 1701 Assessment/Plan Assessment/Plan (1) Pancytopenia Status: Acute Assessment & Plan: 12/19: Hematology following, appreciate recommendations, patient likely needs BM bx given suppression, which they would like to have done in [facility] where the brother lives, concerns for MDS vs Haempotic malignancy, Plt count was stable from yesterday, would like to trend one more day then likely d/c home with outpatient f.u (2) Severe anemia Status: Acute Assessment & Plan: 12/19: Stable since transfusions, patient will need outpatient EGD and colonoscopy (3) Acute heart failure with preserved ejection fraction (HFpEF) Status: Chronic (4) H/O alcohol dependence Clinical Quality Measures DVT/VTE Risk/Contraindication: Contraindications-Pharm: Other *list below* Other: TL Chen MD Dec 19, 2021 14:53
[2021-12-19 16:10] VITALS: BP 117/59
[2021-12-19 19:14] VITALS: BP 123/57
[2021-12-19] MEDS: traZODone 50 MG (DESYREL) TAB PO SCH (20:23)
[2021-12-19] MEDS: ROSUVASTATIN 20 MG (CRESTOR) TABLET PO SCH (20:24)
[2021-12-19] MEDS: FAMOTIDINE 20 MG (PEPCID) TABLET PO SCH (20:25)
[2021-12-19 23:13] VITALS: BP 122/61
[2021-12-20 03:40] VITALS: BP 121/61
[2021-12-20 06:09] LABS: BASOPHILS # (AUTO) 0.1 10^3/uL (0.0-0.1); HEMATOCRIT 21 % (40-54); MEAN CORPUSCULAR VOLUME 92 fL (80-99)
[2021-12-20 06:11] LABS: BASOPHILS % (AUTO) 2 % (0-10); EOSINOPHILS # (AUTO) 0.1 10^3/uL (0.0-0.3); EOSINOPHILS % (AUTO) 2 % (0-10); LYMPHOCYTES # (AUTO) 1.5 10^3/uL (1.0-4.0); LYMPHOCYTES % (AUTO) 61 % (12-44); MEAN CORPUSCULAR HEMOGLOBIN 31 pg (25-34); MEAN CORPUSCULAR HGB CONC 34 g/dL (32-36); MEAN PLATELET VOLUME 11.6 fL (9.0-12.2); MONOCYTES # (AUTO) 0.4 10^3/uL (0.0-1.0); MONOCYTES % (AUTO) 14 % (0-12); NEUTROPHILS # (AUTO) 0.4 10^3/uL (1.8-7.8); NEUTROPHILS % (AUTO) 15 % (42-75); PLATELET COUNT 58 10^3/uL (130-400); WHITE BLOOD COUNT 2.5 10^3/uL (4.3-11.0)
[2021-12-20 06:23] LABS: HEMOGLOBIN 6.9 g/dL (13.3-17.7)
[2021-12-20 06:27] LABS: ALBUMIN 2.6 GM/DL (3.2-4.5); POTASSIUM 3.3 MMOL/L (3.6-5.0)
[2021-12-20 06:29] LABS: CALCIUM 8.2 MG/DL (8.5-10.1)
[2021-12-20 06:30] LABS: TOTAL PROTEIN 5.5 GM/DL (6.4-8.2)
[2021-12-20 06:31] LABS: BILIRUBIN,TOTAL 1.1 MG/DL (0.1-1.0)
[2021-12-20 06:33] LABS: CREATININE SERUM 0.65 MG/DL (0.60-1.30)
[2021-12-20 06:55] LABS: BAND NEUTROPHILS 2 %; EOSINOPHILS % (MANUAL) 2 %; LYMPHOCYTES % (MANUAL) 62 %; MONOCYTES % (MANUAL) 8 %; MYELOCYTES % 2 %; NEUTROPHILS % (MANUAL) 20 %
[2021-12-20 06:56] LABS: ANISOCYTOSIS SLIGHT; ATYPICAL LYMPHOCYTES 2 %; NUCLEATED RED BLOOD CELLS 2; POIKILOCYTOSIS SLIGHT; REACTIVE LYMPHOCYTES 2 %; TEAR DROP CELLS SLIGHT
[2021-12-20] MEDS: FOLIC ACID 1 MG TAB PO SCH (08:03)
[2021-12-20] MEDS: DOCUSATE SODIUM 100 MG (COLACE) CAP PO SCH (08:04)
[2021-12-20] MEDS: AtorvaSTATin TABLET 10 MG TABLET PO SCH (08:04)
[2021-12-20] MEDS: MULTIVIT W/IRON DROPS 50 ML (POLY-VI-SOL W/IRON) PO SCH (08:05)
[2021-12-20 08:34] VITALS: BP 113/57
--- NOTE | 2021-12-20 08:53 | Cardiology Progress Note ---
Subjective Date Seen by Provider: Dec 20, 2021 Time Seen by Provider: 08:50 Subjective/Events-last exam Patient is laying down in bed. No new complaint. Asking to go home. Denies any chest pain Review of Systems General: No Chills, No Night Sweats, No Fatigue, No Malaise, No Appetite, No Other HEENT: No Head Aches, No Visual Changes, No Eye Pain, No Ear Pain, No Dy sphasia, No Sinus Congestion, No Post Nasal Drip, No Sore Throat, No Other Pulmonary: Dyspnea; No Cough, No Pleuritic Chest Pain, No Other Cardiovascular: No: Chest Pain, Palpitations, Orthopnea, Paroxysmal Noc. Dyspnea, Edema, Lt Headedness, Other Objective-Cardiology Exam Last Set of Vital Signs Vital Signs 12/16/21 12/19/21 12/20/21 08:19 21:00 08:34 Temp 36.4 Pulse 85 Resp 18 B/P (MAP) 113/57 (75) Pulse Ox 99 O2 Delivery Room Air O2 Flow Rate 0.00 FiO2 100 I&O Intake and Output 12/20/21 00:00 Intake Total 1255 ml Output Total 670 ml Balance 585 ml Intake Oral 1255 ml Output Urine Total 670 ml # Voids 5 # Bowel Movements 1 General: Alert, Oriented X3, No Acute Distress HEENT: Atraumatic, PERRLA Neck: Supple, No JVD, No Thyromegaly Lungs: Clear to Auscultation, Normal Air Movement Heart: Regular Rate, No Murmurs Abdomen: Normal Bowel Sounds, Soft, No Tenderness, No Masses Extremities: No Clubbing, No Edema, No Tenderness/Swelling Skin: No Rashes, No Breakdown, No Significant Lesion Neuro: Normal Speech Psych/Mental Status: Mental Status NL, Mood NL Results Lab Laboratory Tests 12/20/21 05:00 A/P-Cardiology Admission Diagnosis Congestive heart failure, acute on chronic left ventricular diastolic dysfunction Severe mitral regurgitation Pulmonary hypertension Pancytopenia Assessment/Plan Congestive heart failure. Acute left ventricular diastolic dysfunction. Normal systolic function. Better at this time. Conservative management, okay for discharge from cardiology standpoint and follow-up as an outpatient with Dr. Morris 2D echo was done on December 15, 2021 reported normal left ventricular systolic function with ejection fraction 55 to 60%, grade 2 diastolic dysfunction. Biatrial enlargement, severe mitral regurgitation and moderate tricuspid r egurgitation, pulmonary hypertension with PA pressure 60 mmHg. Pancytopenia, anemia, received blood transfusion, still having thrombocytopenia. Managed by medical team. Pulmonary hypertension, probably secondary to severe mitral regurgitation. Consider evaluation for mitral clip. Tobaccoism, educated on smoking cessation. Alcoholism, patient reported that he did not use alcohol for the past 3 months, managed and followed by primary care physician MISHA PERSAUD MD Dec 20, 2021 08:53
--- NOTE | 2021-12-20 09:36 | Physical Therapy Daily Note ---
PT Daily Note-Current Subjective Patient agrees to PT. Mental Status Patient Orientation: Normal For Age Transfers SCALE: Activities may be completed with or without assistive devices. 3-Xfdsgemvny-caxscsa completes the activity by him/herself with no assistance from a helper. 5-Set-up or Clean-up Assistance-helper sets up or cleans up; patient completes activity. [place] assists only prior to or following the activity. 4-Supervision or Touching Assistance-helper provides verbal cues and/or touching/steadying and/or contact guard assistance as patient completes activity. Assistance may be provided throughout the activity or intermittently. 3-Partial/Moderate Assistance-helper does LESS THAN HALF the effort. [place] lifts, holds or supports trunk or limbs, but provides less than half the effort. 2-Substantial/Maximal Assistance-helper does MORE THAN HALF the effort. [place] lifts or holds trunk or limbs and provides more than half the effort. 0-Czbdyklgr-fhvzso does ALL the effort. Patient does none of the effort to complete the activity. Or, the assistance of 2 or more helpers is required for the patient to complete the activity. If activity was not attempted, code reason: 7-Patient Refused. 9-Not Applicable-not attempted and the patient did not perform the activity befo re the current illness, exacerbation or injury. 10-Not Attempted due to Environmental Limitations-(lack of equipment, weather re straints, etc.). 88-Not Attempted due to Medical Conditions or Safety Concerns. Sit to Lying (QC): 6 Lying to Sitting/Side of Bed(Q: 6 Sit to Stand (QC): 4 Weight Bearing Full Weight Bearing Full Weight Bearing Gait Training Distance: 200' Walk 10 feet (QC): 4 Walk 50 ft with 2 Turns(QC): 4 Walk 150 ft (QC): 4 Gait Assistive Device: FWW slightly unsteady with PT CGA for safety Assessment Patient fatigues with minimal activity and has mild c/o dizziness with upright activity. Continue to increase activity as tolerated by patient. PT Night Cleaner Goals Half-Way Goals PT Night Cleaner Goals Time Frame: Dec 22, 2021 Roll Left & Right (QC): 6 Sit to Lying (QC): 6 Lying-Sitting on Side/Bed(QC): 6 Sit to Stand (QC): 4 (SBA) Chair/Lcq-nc-Wwayd Xfer(QC): 4 (SBA) Walk 10 feet (QC): 4 (SBA) Walk 50ft with 2 Turns (QC): 4 (SBA) Walk 150 ft (QC): 4 (SBA) PT Plan Treatment/Plan Treatment Plan: Continue Plan of Care Treatment Plan: Education, Functional Activity [place], Functional Strength, Gait, Safety, Therapeutic Exercise, Transfers Treatment Duration: Dec 22, 2021 Frequency: 6 times per week Estimated Hrs Per Day: .25 hour per day Patient and/or Family Agrees t: Yes Time/GCodes Time In: 840 Time Out: 852 Total Billed Treatment Time: 12 Total Billed Treatment 1 visit GT 12 min MONSE STALEY PT Dec 20, 2021 09:36
--- NOTE | 2021-12-20 11:35 | Discharge Summary ---
Diagnosis/Chief Complaint Date of Admission December 13, 2021 at 15:50 Date of Discharge 12/20/21 Admission Diagnosis Admission Diagnosis See problem list Discharge Diagnosis See Below Problems/Diagnosis: (1) Pancytopenia Assessment & Plan: 12/19: Hematology following, appreciate recommendations, patient likely needs BM bx given suppression, which they would like to have done in [facility] where the brother lives, concerns for MDS vs Haempotic malignancy, Plt count was stable from yesterday, would like to trend one more day then likely d/c home with outpatient f.u Status: Acute (2) Severe anemia Assessment & Plan: 12/19: Stable since transfusions, patient will need outpatient EGD and colonoscopy Status: Acute (3) Acute heart failure with preserved ejection fraction (HFpEF) Status: Chronic (4) H/O alcohol dependence Discharge Summary-Simple/Stand Consultations Dr Collins: Hematology Dr Marte: General Surgery Discharge Physical Examination Allergies: Coded Allergies: No Known Drug Allergies (Unverified , 12/13/21) Vitals & I&Os Vital Sign - Last 12Hours Date Time Temp Pulse Resp B/P (MAP) Pulse Ox O2 Delivery O2 Flow Rate FiO2 12/20/21 09:28 Room Air 100 12/20/21 08:34 36.4 85 18 113/57 (75) 99 12/16/21 08:19 0.00 Intake and Output 12/20/21 00:00 Intake Total 1055 ml Output Total 445 ml Balance 610 ml General Appearance: Alert, Oriented X3, No Acute Distress, Other (thin) Respiratory: Clear to Auscultation, Normal Air Movement Cardiovascular: Regular Rate, No Murmurs Abdominal: Normal Bowel Sounds, Soft, No Tenderness, No Masses Extremities: No Edema, No Tenderness/Swelling Neuro: Normal Speech, Strength at 5/5 X4 Ext, Sensation Intact, Cranial Nerves 3-12 NL Hospital Course See final discharge diagnosis. Radiology Reviewed Signed Date of Exam:12/13/21 CHEST 1 VIEW AP/PA ONLY INDICATION: Dizziness and dyspnea. TECHNIQUE/COMPARISON: A portable AP upright view of the chest was obtained. There is no previous study for comparison. FINDINGS: There is mild cardiomegaly and pulmonary venous congestion. Increased density is seen in the perihilar regions of both lungs without lobar consolidation, pneumothorax, or pleural fluid. IMPRESSION: Findings suggest mild congestive heart failure and central pulmonary edema. Dictated by: Dictated on workstation # [id number] Dict: 12/13/21 1349 Trans: 12/13/21 1701 [id number] Interpreted by: BK PAGE MD Electronically signed by: BK PAGE MD 12/13/211700 Discussion & Recommendations 86 yo M that presented with severe pancytopenia. He received 4 units of pRBCs in the ER. Dr Collins with hematology was consulted and there is some concern for MDS and she would like to set up bone marrow bx. Patient is going to move to [facility] with his brother and they are setting up everything at [facility]. Patient need bone marrow bx and EGD/Colonoscopy as outpatient. Plts are trending up at time of d/c. Discharge Condition at discharge Guarded Instructions to patient/family Please see electronic discharge instructions given to patient. Discharge Medications Reviewed and agree with Discharge Medication list on patient's Discharge Instruction sheet Clinical Quality Measures DVT/VTE Risk/Contraindication: Contraindications-Pharm: Other *list below* Other: TL Chen MD Dec 20, 2021 11:35
[2021-12-20] MEDS ORDERED: PREN-37 PO (11:38)
--- NOTE | 2021-12-20 11:39 | Discharge Summary ---
Discharge [facility] Reconcile Patient Problems Problems Reviewed?: Yes Discharge Medications New, Converted or Re-Newed RX: Other New Medications: Vit/Iron Fumarate/FA ( Tablet) 27 Mg Iron-800 Mcg Tablet 1 EACH PO DAILY, #30 TAB Continued Medications: Cetirizine HCl (Cetirizine HCl) 10 Mg Tablet 10 MG PO DAILY PRN for ALLERGIES, TAB Famotidine (Famotidine) 20 Mg Tablet 20 MG PO HS Lovastatin (Lovastatin) 40 Mg Tablet 40 MG PO DAILY Tramadol HCl (Tramadol HCl) 50 Mg Tablet 50 MG PO BID PRN for PAIN-MODERATE (5-7) Trazodone HCl (Trazodone HCl) 50 Mg Tablet 50 MG PO HS Discontinued Medications: Aspirin (Aspirin EC) 81 Mg Tablet.dr 81 MG PO DAILY, TAB Hydrochlorothiazide (Hydrochlorothiazide) 25 Mg Tablet 25 MG PO HS Patient Instructions Goal/Follow Up Appt: Needs to establish with hematology in [place] Activity & Diet Discharge Diet: No Restrictions Activity as Tolerated: Yes TL ALFREDO MD Dec 20, 2021 11:39
[2021-12-20 12:19] VITALS: BP 126/58
== END 2021-12-20 12:00 | disposition home or self-care (01) | DRG 808 ==
LOC: ER FS 12:47 → CSD 15:50 → 4TH 12-14 15:51
PROVIDERS: ADMIT Internal Medicine; ATTEND Family Medicine
DX: D61.818 Other pancytopenia (principal); I50.33 Acute on chronic diastolic (congestive) heart failure; I11.0 Hypertensive heart disease with heart failure; I08.1 Rheumatic disorders of both mitral and tricuspid valves; I27.20 Pulmonary hypertension, unspecified; Z20.822 Contact with and (suspected) exposure to COVID-19; F10.20 Alcohol dependence, uncomplicated; E78.2 Mixed hyperlipidemia; E87.6 Hypokalemia; F17.210 Nicotine dependence, cigarettes, uncomplicated; M19.91 Primary osteoarthritis, unspecified site; H91.90 Unspecified hearing loss, unspecified ear; Z79.82 Long term (current) use of aspirin; Y90.0 Blood alcohol level of less than 20 mg/100 ml
CPT/HCPCS: 36415; 71045; 71046; 80053; 80061; 80320; 81000; 82274; 82607; 82728; 82746; 82947; 83540; 83550; 83690; 83735; 83874; 83880; 84145; 84484; 85007; 85025; 85027; 85610; 85730; 86850; 86900; 86901; 86920; 87636; 87804; 93005; 93306; 94760; 96374